=== PATIENT | male | born 1955 | race Caucasian/White ===

== ENCOUNTER 2018-10-02 15:02 | Inpatient (IN) | payer MEDICARE ==
[~2018-10-02] VITALS: Ht 165.1 cm; Wt 81.7 kg
[~2018-10-02 15:02] MED LIST: ACET325 PO; ALBU90OI6 INH; ALPR.5 PO; AZIT250 PO; Chantix0.5 MG PO; Citalopram HBr20 MG PO; GABA300 PO; HYDACE5 PO; IBUP600 PO; Inderal40 MG PO; LEVITRA PO; Neurontin800 MG PO; Norco 10-325 T1 EACH PO; OMEP20ER PO; OMEPRAZOLE MAGN20 MG PO; Percocet 5-3251 EACH PO; Pravastatin Sod40 MG PO; QUALAQUIN PO; TAMS.4ER PO; TEMA30 PO; TRAZ50 PO; VARE1 PO; ZINCODVICR TOP; ZOLP10 PO
[2018-10-02 15:32] LABS: BASOPHILS ABSOLUTE AUTO 0.05 K/mm3 (0.00-0.23); BASOPHILS PERCENT AUTO 0 % (0-2); EOSINOPHILS ABSOLUTE AUTO 0.02 K/mm3 (0.00-0.68); EOSINOPHILS PERCENT AUTO 0 % (0-6); Hematocrit 45.8 % (37.0-53.0); Hemoglobin 14.9 g/dL (13.5-17.5); IMMATURE GRAN ABSOLUTE AUTO 0.29 K/mm3 (0.00-0.10); IMMATURE GRAN PERCENT AUTO 1 % (0-1); LYMPHOCYTES ABSOLUTE AUTO 1.57 K/mm3 (0.84-5.20); LYMPHOCYTES PERCENT AUTO 7 % (21-46); MONOCYTES ABSOLUTE AUTO 1.42 K/mm3 (0.16-1.47); MONOCYTES PERCENT AUTO 6 % (4-13); Mean Corpuscular HGB 31.2 pg (26.0-34.0); Mean Corpuscular HGB Conc 32.5 g/dL (31.5-36.5); Mean Corpuscular Volume 96 fL (80-100); Mean Platelet Volume 9.4 fL (9.1-12.4); NEUTROPHILS ABSOLUTE AUTO 20.78 K/mm3 (1.96-9.15); NEUTROPHILS PERCENT AUTO 86 % (41-73); Platelet Count 199 K/mm3 (150-400); RDW Coefficient Variation 13.2 % (11.7-14.2); Red Blood Cell Count 4.78 M/mm3 (4.30-5.90); White Blood Cell Count 24.13 K/mm3 (4.00-11.30)
[2018-10-02 16:11] LABS: Alanine Aminotransfer (ALT/SGP 45 U/L (12-78); Albumin, Blood 3.2 g/dL (3.4-5.0); Albumin/Globulin Ratio 0.7 (0.8-1.8); Alk Phos 114 U/L (50-136); Anion Gap 7 mmol/L (6-16); Aspartate Aminotrans (AST/SGOT 41 U/L (12-37); Bilirubin, Total 0.7 mg/dL (0.1-1.0); Blood Urea Nitrogen 16 mg/dL (8-24); Bun/Creatinine Ratio 19.6 (12.0-20.0); CO2, Blood 26 mmol/L (21-32); Calcium, Blood 8.6 mg/dL (8.5-10.1); Chloride, Blood 104 mmol/L (98-108); Creatinine, Blood 0.82 mg/dL (0.60-1.20); Globulin, Blood 4.7 g/dL (2.2-4.0); Glomerular Filtration Rate >60 (60-); Glucose, Blood 125 mg/dL (70-99); Potassium, Blood 4.3 mmol/L (3.5-5.5); Sodium, Blood 137 mmol/L (136-145); Total Protein, Blood 7.9 g/dL (6.4-8.2); Troponin I <0.015 ng/mL (0.000-0.040)
[2018-10-02 20:21] LABS: Influenza A Negative (NEGATIVE); Influenza B Negative (NEGATIVE)
[2018-10-02] MEDS ORDERED: Norco 10-325 T1 EACH PO (21:25)
[2018-10-02] MEDS ORDERED: VIT1CAPS12 PO (21:26)
[2018-10-02] MEDS ORDERED: Multivitamin1 EAC1 PO (21:26)
--- NOTE | 2018-10-03 04:53 | NUR ---
SHIFT SUMMARY RECEIVED REPORT FROM ED RN. DIAGNOSIS OF SEPSIS R/T PNEUMONIA. LEUKOCYTOSIS NOTED. INFLUENZA NEGATIVE. LACTIC ACID WNL. WBC ELEVATED HOWEVER. WAS NOTED TO ED PHYSICIAN THAT HAD A FALL X2 DAYS AGO, BUT DENIED FALLING ONTO THE RIBS OR HITTING HIS HEAD. ARRIVED TO MEDICAL UNIT VIA STRETCHER @ 2134; ABLE TO SELF TRANSFER WITHOUT COMPLICATIONS. A/O X4, ABLE TO MAKE NEEDS KNOWN. COOPERATIVE WITH CARE. ANSWERS QUESTIONS APPROPRIATELY. C/O PAIN TO R SIDE OF CHEST/FLANK, RATED 8/10; MEDICATED PER EMAR. VSS/AFEBRILE THIS AM. APPEARED TO REST AFTER ARRIVAL. NO ACUTE CHANGES OVERNIGHT. WCTM. REPORT TO ONCOMING RN.
[2018-10-03 05:35] LABS: BASOPHILS ABSOLUTE AUTO 0.03 K/mm3 (0.00-0.23); BASOPHILS PERCENT AUTO 0 % (0-2); EOSINOPHILS PERCENT AUTO 0 % (0-6); Hematocrit 39.9 % (37.0-53.0); Hemoglobin 13.1 g/dL (13.5-17.5); IMMATURE GRAN ABSOLUTE AUTO 0.21 K/mm3 (0.00-0.10); IMMATURE GRAN PERCENT AUTO 1 % (0-1); LYMPHOCYTES ABSOLUTE AUTO 1.26 K/mm3 (0.84-5.20); LYMPHOCYTES PERCENT AUTO 7 % (21-46); MONOCYTES ABSOLUTE AUTO 0.18 K/mm3 (0.16-1.47); MONOCYTES PERCENT AUTO 1 % (4-13); Mean Corpuscular HGB 31.4 pg (26.0-34.0); Mean Corpuscular HGB Conc 32.8 g/dL (31.5-36.5); Mean Corpuscular Volume 96 fL (80-100); NEUTROPHILS ABSOLUTE AUTO 16.13 K/mm3 (1.96-9.15); NEUTROPHILS PERCENT AUTO 91 % (41-73); Platelet Count 175 K/mm3 (150-400); RDW Coefficient Variation 13.2 % (11.7-14.2); RDW Standard Deviation 47.4 fL (35.1-46.3); Red Blood Cell Count 4.17 M/mm3 (4.30-5.90); White Blood Cell Count 17.81 K/mm3 (4.00-11.30)
--- NOTE | 2018-10-03 09:17 | NUR ---
I recieved a permission to the patient to assist in providing care for tomorrow at [phone].
--- NOTE | 2018-10-03 16:43 | NUR ---
Juno was pleasant and welcoming. He is non-scientologist and declined prayer. I spoke to him about advanced care planning and an AD. He took the information, but said that his knows what he wants and he did not see a need for this document. Juno believes he will recover and expressed no concerns. I will remain available.
--- NOTE | 2018-10-03 18:46 | NUR ---
SHIFT SUMMARY OX3 STANDBY ASSIST X1 DUE TO DYSPNEA ON EXERTION. FALL AT HOME. PLEASANT, CALM. MEDS GIVEN FOR RIGHT SIDED RIB PAIN THAT INCREASES WITH COUGHING, DEEP BREATHING. EATING AND DRINKING WELL. BATHROOM PRIVILEGES/URINAL.
--- NOTE | 2018-10-04 07:31 | NUR ---
a+o walking rounds completed, care provided, room air, saline locked, call light in reach, hoping to go home today
[2018-10-04] MEDS ORDERED: ACET325 PO (12:05)
[2018-10-04] MEDS ORDERED: ALBU90OI INH (12:06)
[2018-10-04] MEDS ORDERED: Amoxicillin875 MG PO (12:07)
--- NOTE | 2018-10-04 12:30 | NUR ---
DISCHARGE NOTE PT DISCHARGED VIA W/C POV WITH FAMIY. IV DISCONTINUED INTACT. RX FAXED TO PHARMACY OF PT'S CHOOSING. PT VERBALIZED UNDERSTNDING OF WRITTEN AND VERBAL DISCHARGE INSTRUCTIONS. CAROL Castillo PROVIDED EDUCATION REINFORCEMENT OF USING RESPIRATORY BREATHING DEVICE PRIOR TO DC.
== END 2018-10-04 12:04 | disposition home or self-care (01) | DRG 871 ==
LOC: ER 15:02 → MEDS 21:27
PROVIDERS: Emergency Medicine; Physician Assistant; ADMIT Hospitalist
DX: A41.9 Sepsis, unspecified organism (principal); J18.9 Pneumonia, unspecified organism; G90.50 Complex regional pain syndrome I, unspecified; F32.9 Major depressive disorder, single episode, unspecified; E78.5 Hyperlipidemia, unspecified; G62.9 Polyneuropathy, unspecified; K76.0 Fatty (change of) liver, not elsewhere classified; K21.9 Gastro-esophageal reflux disease without esophagitis; Z87.891 Personal history of nicotine dependence
CPT/HCPCS: 36415; 71046; 80053; 83605; 83880; 84484; 85025; 87040; 87804; 93005; 93010; 94010; 94640; 94664; 94667; 94760; 96361; 96374; 96375; 99285-25; 99407; J0696; J1170; J1650; J2930; J7030; J7120

== ENCOUNTER 2019-05-20 23:55 | Inpatient (IN) | payer MEDICARE ==
[~2019-05-20] VITALS: Ht 162.6 cm; Wt 91.7 kg
[~2019-05-20 23:55] MED LIST changes: +ALBU90OI INH; +Amoxicillin875 MG PO; +Multivitamin1 EAC1 PO; +VIT1CAPS12 PO
[2019-05-21 00:37] LABS: BASOPHILS ABSOLUTE AUTO 0.02 K/mm3 (0.00-0.23); BASOPHILS PERCENT AUTO 0 % (0-2); EOSINOPHILS ABSOLUTE AUTO 0.27 K/mm3 (0.00-0.68); EOSINOPHILS PERCENT AUTO 2 % (0-6); Hematocrit 43.7 % (37.0-53.0); Hemoglobin 14.1 g/dL (13.5-17.5); IMMATURE GRAN ABSOLUTE AUTO 0.04 K/mm3 (0.00-0.10); IMMATURE GRAN PERCENT AUTO 0 % (0-1); LYMPHOCYTES ABSOLUTE AUTO 1.54 K/mm3 (0.84-5.20); LYMPHOCYTES PERCENT AUTO 13 % (21-46); MONOCYTES ABSOLUTE AUTO 0.45 K/mm3 (0.16-1.47); MONOCYTES PERCENT AUTO 4 % (4-13); Mean Corpuscular HGB 30.2 pg (26.0-34.0); Mean Corpuscular HGB Conc 32.3 g/dL (31.5-36.5); Mean Corpuscular Volume 94 fL (80-100); Mean Platelet Volume 9.6 fL (9.1-12.4); NEUTROPHILS ABSOLUTE AUTO 9.89 K/mm3 (1.96-9.15); NEUTROPHILS PERCENT AUTO 81 % (41-73); Platelet Count 208 K/mm3 (150-400); RDW Coefficient Variation 13.2 % (11.7-14.2); RDW Standard Deviation 45.6 fL (35.1-46.3); Red Blood Cell Count 4.67 M/mm3 (4.30-5.90); White Blood Cell Count 12.21 K/mm3 (4.00-11.30)
[2019-05-21 00:45] LABS: Base Excess Venous 4.7 mmol/L; Bicarbonate Venous 28.2 mmol/L (24.0-30.0); PCO2 Venous 41.8 mmHg (38-42); PO2 Venous 126 mmHg (38-42); pH Blood Venous 7.45 (7.34-7.37)
[2019-05-21 00:59] LABS: Alanine Aminotransfer (ALT/SGP 24 U/L (12-78); Albumin, Blood 3.5 g/dL (3.4-5.0); Albumin/Globulin Ratio 0.9 (0.8-1.8); Alk Phos 90 U/L (50-136); Anion Gap 5 mmol/L (6-16); Aspartate Aminotrans (AST/SGOT 21 U/L (12-37); Bilirubin, Total 0.3 mg/dL (0.1-1.0); Blood Urea Nitrogen 18 mg/dL (8-24); Bun/Creatinine Ratio 22.4 (12.0-20.0); CO2, Blood 28 mmol/L (21-32); Calcium, Blood 8.3 mg/dL (8.5-10.1); Chloride, Blood 107 mmol/L (98-108); Globulin, Blood 4.1 g/dL (2.2-4.0); Glomerular Filtration Rate >60 (60-); Glucose, Blood 106 mg/dL (70-99); Potassium, Blood 3.9 mmol/L (3.5-5.5); Sodium, Blood 140 mmol/L (136-145); Total Protein, Blood 7.6 g/dL (6.4-8.2); Troponin I <0.015 ng/mL (0.000-0.040)
[2019-05-21 04:47] LABS: Adenovirus Not Detected (NOT DETECT); Bordetella pertussis Not Detected (NOT DETECT); Chlamydophila pneumoniae Not Detected (NOT DETECT); Coronavirus 229E Not Detected (NOT DETECT); Coronavirus HKU1 Not Detected (NOT DETECT); Coronavirus NL63 Not Detected (NOT DETECT); Coronavirus OC43 Not Detected (NOT DETECT); Human Metapneumovirus Not Detected (NOT DETECT); Human Rhinovirus/Enterovirus Detected (NOT DETECT); Influenza A Not Detected (NOT DETECT); Influenza A/2009-H1 Not Detected (NOT DETECT); Influenza A/H1 Not Detected (NOT DETECT); Influenza A/H3 Not Detected (NOT DETECT); Influenza B Not Detected (NOT DETECT); Mycoplasma pneumoniae Not Detected (NOT DETECT); Parainfluenza Virus 1 Not Detected (NOT DETECT); Parainfluenza Virus 2 Not Detected (NOT DETECT); Parainfluenza Virus 3 Not Detected (NOT DETECT); Parainfluenza Virus 4 Not Detected (NOT DETECT); Respiratory Syncytial Virus Not Detected (NOT DETECT)
--- NOTE | 2019-05-21 05:15 | NUR ---
ADMIT NOTE/SHIFT SUMMARY PATIENT PLEASENT AND COOPERATIVE UPON ADMIT. PATIENT ABLE TO TRANSFER SELF FROM THE GURNEY TO THE BED WITH SBA. PATIENT REPORTS HIS BREATHING IS MUCH BETTER THAN WHEN HE CAME INTO THE ER. PATIENT DENIES ANY NAUSEA AT THIS TIME. PATIENT SETTLED IN AND ORIENTED TO THE ROOM, UNIT, AND CALL LIGHT. PATIENT ON 5L O2 UPON ADMIT. PATIENT REPORTS HE USES OXYGEN AT HOME DURING THE NIGHT BUT HE DOES NOT REMEMBER HOW MUCH. PATIENT HAS APPEARED TO SLEEP WELL THROUGHOUT THE REST OF THE NIGHT. WILL CONTINUE TO MONITOR PATIENT AND REPORT TO ONCOMING RN.
[2019-05-21 08:08] LABS: Hematocrit 43.8 % (37.0-53.0); Mean Corpuscular HGB 30.2 pg (26.0-34.0); Mean Corpuscular Volume 95 fL (80-100); Mean Platelet Volume 9.4 fL (9.1-12.4); Platelet Count 193 K/mm3 (150-400); RDW Coefficient Variation 13.4 % (11.7-14.2); RDW Standard Deviation 46.5 fL (35.1-46.3); Red Blood Cell Count 4.63 M/mm3 (4.30-5.90); White Blood Cell Count 23.25 K/mm3 (4.00-11.30)
[2019-05-21 08:32] LABS: Alanine Aminotransfer (ALT/SGP 29 U/L (12-78); Albumin, Blood 3.3 g/dL (3.4-5.0); Albumin/Globulin Ratio 0.8 (0.8-1.8); Alk Phos 72 U/L (50-136); Anion Gap 4 mmol/L (6-16); Aspartate Aminotrans (AST/SGOT 25 U/L (12-37); Bilirubin, Total 0.7 mg/dL (0.1-1.0); Blood Urea Nitrogen 20 mg/dL (8-24); Bun/Creatinine Ratio 21.5 (12.0-20.0); CO2, Blood 30 mmol/L (21-32); Calcium, Blood 8.4 mg/dL (8.5-10.1); Chloride, Blood 106 mmol/L (98-108); Creatinine, Blood 0.93 mg/dL (0.60-1.20); Glomerular Filtration Rate >60 (60-); Glucose, Blood 143 mg/dL (70-99); Sodium, Blood 140 mmol/L (136-145); Total Protein, Blood 7.3 g/dL (6.4-8.2)
--- NOTE | 2019-05-21 12:31 | NUR ---
NOTE PT VISITING WITH FAMILY. DID NOT BRING PT MEDICATION BOTTLES FROM HOME. SHE IS GOING TO CALL THEIR PHARMACY AND REQUEST RECORDS BE FAXED TO PCU. PT WEANED TO RA. SAT 94%. VOICE QUALITY MILDLY STRAINED WITH TALKING. DR SAUNDERS CALLED TO REQUEST A BD PROTOCOL. ORDER RECEIVED. PT REQUESTED PRN BREATHING TREATMENT X1. PT EXPRESSED DECREASE IN WORK OF BREATHING AFTER TREATMENT. H/L. PT APPETITE POOR. HE DOESN'T LIKE THE FOOD. CONTINUE POT.
[2019-05-21] MEDS ORDERED: Flovent 110 MCG12 GM INH (16:20)
[2019-05-21] MEDS ORDERED: Inderal40 MG (16:21)
--- NOTE | 2019-05-21 20:57 | NUR ---
CARE ASSUMPTION PT A&O X4. VSS. MONITOR SHOWS NSR, HR 80'S. SPO2 > 92% ON RA. PT REPORTS USING O2 AT HOME AT NIGHT. PT DENIES KNOWING HOME O2 L/MIN USAGE. AGREED W/ PT TO START ON 2L NC WHILE SLEEPING. PT NOTED TO BE SWEATY T/O AND BILAT HANDS TREMULOUS. PT DENIES ALCOHOL USAGE. PT C/O PAIN IN LOWER BACK AND BILAT LOWER LEGS FROM KNEES DOWN. MEDICATING PT PER PT REQUEST/EMAR. WILL CONTINUE TO MONITOR AND PROVIDE CARE.
--- NOTE | 2019-05-22 04:42 | NUR ---
SHIFT SUMMARY PT CONTINUES TO BE A&O X4. VSS. SPO2 > 92% ON RA OR 2L NC WHILE SLEEPING. MONITOR SHOWS NSR, HR 70-90. PT CONTINUES TO BE TREMULOUS BUT IS NO LONGER SWEATING. WILL CONTINUE TO MONITOR AND PROVIDE CARE UNTIL REPORT OFF TO DAY SHIFT RN.
--- NOTE | 2019-05-22 17:51 | NUR ---
SHIFT SUMMARY PT A&Ox4, CALM AND COOPERATIVE WITH CARE. TREMORS NOTED, PT STATES TREMORS PRESENT AT HOME, "BUT NOT BAD". PT REPORTS PAIN IN LOWER BACK AND BLE, MEDICATED x1 WITH NORCO PER ORDERS WITH POSITIVE RESULTS. PT SOB WITH EXERTION, TITRATED TO RA THIS AM, SPO2 >94% ON RA. PT DENIES NAUSEA T/O SHIFT. PT TRANSITIONED TO PO STEROIDS THIS AM. SPUTUM SPECIMEN COLLECTED AND SENT. VSS. NO OTHER ACUTE CHANGES NOTED DURING SHIFT. WILL CONTINUE TO MONITOR UNITL REPORT GIVEN TO ONCOMING RN.
[2019-05-23 04:16] LABS: Hematocrit 39.7 % (37.0-53.0); Mean Corpuscular HGB 29.9 pg (26.0-34.0); Mean Corpuscular HGB Conc 32.7 g/dL (31.5-36.5); Platelet Count 213 K/mm3 (150-400); RDW Coefficient Variation 13.9 % (11.7-14.2); RDW Standard Deviation 46.3 fL (35.1-46.3); Red Blood Cell Count 4.35 M/mm3 (4.30-5.90); White Blood Cell Count 22.92 K/mm3 (4.00-11.30)
[2019-05-23 04:17] LABS: Mean Corpuscular Volume 91 fL (80-100)
[2019-05-23 04:32] LABS: Anion Gap 6 mmol/L (6-16); Blood Urea Nitrogen 32 mg/dL (8-24); Bun/Creatinine Ratio 35.6 (12.0-20.0); CO2, Blood 30 mmol/L (21-32); Calcium, Blood 8.6 mg/dL (8.5-10.1); Chloride, Blood 106 mmol/L (98-108); Glomerular Filtration Rate >60 (60-); Glucose, Blood 132 mg/dL (70-99); Potassium, Blood 3.5 mmol/L (3.5-5.5); Sodium, Blood 142 mmol/L (136-145)
--- NOTE | 2019-05-23 05:40 | NUR ---
PATIENT COMPLAINED THAT HE DIDN'T GET MUCH SLEEP DUE TO NIGHTMARES. PATIENT DENIES ANY PAIN. PATIENT SLEPT WITH 2L NC ON. PATIENT CALL LIGHT WITH IN REACH. PATIENT INDEPENDENT IN ROOM.
--- NOTE | 2019-05-23 18:16 | NUR ---
SHIFT SUMMARY PT A&Ox4, CALM AND COOPERATIVE WITH CARE. PT RESTING IN BED DURING SHIFT. UP TO BATHROOM IND. PT UP WALKING IN KRUGER T/O SHIFT. PT REPORTS PAIN IN BACK AND BLE, MEDICATED x2 WITH NORCE AND x1 WITH TYLENOL WITH POSITIVE RESULTS. PT SOB WITH EXERTION, SPO2>94% ON RA T/O SHIFT. PT DENIES NAUSEA, GOOD APPETITE. PT RECEIVED PO STEROIDS AND TRANSITIONING TO PO ANTIBIOTICS THIS EVENING. VSS. NO OTHER ACUTE CHANGES NOTED DURING SHIFT. WILL CONTINUE TO MONITOR UNTIL REPORT GIVEN TO ONCOMING RN.
[2019-05-24 03:37] LABS: Hematocrit 41.4 % (37.0-53.0); Hemoglobin 13.3 g/dL (13.5-17.5); Mean Corpuscular HGB 29.7 pg (26.0-34.0); Mean Corpuscular HGB Conc 32.1 g/dL (31.5-36.5); Mean Corpuscular Volume 92 fL (80-100); Platelet Count 229 K/mm3 (150-400); RDW Coefficient Variation 13.7 % (11.7-14.2); RDW Standard Deviation 46.8 fL (35.1-46.3); Red Blood Cell Count 4.48 M/mm3 (4.30-5.90); White Blood Cell Count 18.77 K/mm3 (4.00-11.30)
--- NOTE | 2019-05-24 06:03 | NUR ---
SHIFT SUMMARY PATIENT VERY PLEASENT AND COOPERATIVE THROUGHOUT THE NIGHT. PATIENT WENT ON A WALK BEFORE BED. APPEARED TO SLEEP WELL LAST NIGHT. VITAL SIGNS CHARTED. PATIENT CURRENTLY APPEARS TO BE ASLEEP. WILL CONTINUE TO MONITOR PATIENT AND REPORT TO ONCOMING RN.
--- NOTE | 2019-05-24 09:59 | NUR ---
Assumed care of patient at 0715. 0720-Assessment completed, lung sounds are decreased R lobes, clear on left, reports non-productive cough. C/O back pain (chronic) and feet pain from neuropathy...rates 01/05...see MAR for intevention and response. No other problems to report. Hoping to go home today.
--- NOTE | 2019-05-24 12:18 | NUR ---
DISCHARGE SUMMARY: Dr. Eric in and is in the process of writing discharge orders to home. Patient is up in the hallway on RA ambulating, ready to go home, tolerating well with no dyspnea noted. No further c/o pain since Tylenol given this am.
[2019-05-24] MEDS ORDERED: ALBU2.5V5 INH (14:48)
[2019-05-24] MEDS ORDERED: Flovent 110 MCG12 GM INH (14:50)
[2019-05-24] MEDS ORDERED: LEVO750 PO (14:52)
[2019-05-24] MEDS ORDERED: DELTASONE20 MG PO (14:56)
[2019-05-24] MEDS ORDERED: LONHALA MA25 MCG/1 M INH (14:58)
== END 2019-05-24 15:39 | disposition home or self-care (01) | DRG 871 ==
LOC: ER 23:55 → PCU 23:56
PROVIDERS: Emergency Medicine; Internal Medicine; ADMIT Internal Medicine
DX: A41.9 Sepsis, unspecified organism (principal); J96.21 Acute and chronic respiratory failure with hypoxia; J18.1 Lobar pneumonia, unspecified organism; J44.1 Chronic obstructive pulmonary disease with (acute) exacerbation; J44.0 Chronic obstructive pulmonary disease with (acute) lower respiratory infection; B97.89 Other viral agents as the cause of diseases classified elsewhere; K21.9 Gastro-esophageal reflux disease without esophagitis; E78.5 Hyperlipidemia, unspecified
CPT/HCPCS: 0099U; 36415; 71045; 80048; 80053; 82803; 83605; 83880; 84145; 84484; 85025; 85027; 87040; 87070; 87205; 93005; 93010; 94640; 94664; 94667; 94760; 96365; 96375; 98960; 99285; A9270; J0692; J1650; J1956; J2930; J7512

== ENCOUNTER → 2020-06-23 | Outpatient (CLI) | payer MEDICARE ==
[~2020-06-23] MED LIST changes: +ALBU2.5V5 INH; +DELTASONE20 MG PO; +Flovent 110 MCG12 GM INH; +Inderal40 MG; +LEVO750 PO; +LONHALA MA25 MCG/1 M INH
== END | disposition home or self-care (01) ==
LOC: LAB SHORT 15:40 → LAB EV 15:40
DX: G89.0 Central pain syndrome (principal); Z79.899 Other long term (current) drug therapy
CPT/HCPCS: G0480

== ENCOUNTER → 2020-06-26 | Outpatient (CLI) | payer MEDICARE | END | disposition home or self-care (01) | LOC: LAB SHORT 12:00 → LAB SRC 12:00 | DX: Z51.81 Encounter for therapeutic drug level monitoring (principal); Z79.899 Other long term (current) drug therapy | CPT/HCPCS: G0480 ==

== ENCOUNTER 2020-09-23 11:57 | Observation (INO) | payer MEDICARE ==
[~2020-09-23] VITALS: Ht 162.6 cm; Wt 95.2 kg
[~2020-09-23 11:57] MED LIST changes: -Inderal40 MG PO; -Pravastatin Sod40 MG PO
[2020-09-23 13:11] LABS: BASOPHILS ABSOLUTE AUTO 0.04 K/mm3 (0.00-0.23); BASOPHILS PERCENT AUTO 1 % (0-2); EOSINOPHILS ABSOLUTE AUTO 0.39 K/mm3 (0.00-0.68); EOSINOPHILS PERCENT AUTO 5 % (0-6); Hematocrit 48.1 % (37.0-53.0); Hemoglobin 14.8 g/dL (13.5-17.5); IMMATURE GRAN ABSOLUTE AUTO 0.06 K/mm3 (0.00-0.10); IMMATURE GRAN PERCENT AUTO 1 % (0-1); LYMPHOCYTES ABSOLUTE AUTO 2.53 K/mm3 (0.84-5.20); LYMPHOCYTES PERCENT AUTO 30 % (21-46); MONOCYTES ABSOLUTE AUTO 0.76 K/mm3 (0.16-1.47); MONOCYTES PERCENT AUTO 9 % (4-13); Mean Corpuscular HGB Conc 30.8 g/dL (31.5-36.5); Mean Corpuscular Volume 91 fL (80-100); Mean Platelet Volume 9.5 fL (9.1-12.4); NEUTROPHILS ABSOLUTE AUTO 4.65 K/mm3 (1.96-9.15); NEUTROPHILS PERCENT AUTO 55 % (41-73); NRBC ABSOLUTE 0.03 K/mm3 (0.00-0.02); NRBC Auto 0.4 /100 WBC (0.0-0.2); Platelet Count 227 K/mm3 (150-400); RDW Coefficient Variation 14.4 % (11.7-14.2); RDW Standard Deviation 47.8 fL (35.1-46.3); Red Blood Cell Count 5.29 M/mm3 (4.30-5.90); White Blood Cell Count 8.43 K/mm3 (4.00-11.30)
[2020-09-23 13:21] LABS: Alanine Aminotransfer (ALT/SGP 25 U/L (12-78); Albumin, Blood 3.2 g/dL (3.4-5.0); Albumin/Globulin Ratio 0.7 (0.8-1.8); Alk Phos 92 U/L (50-136); Anion Gap 5 mmol/L (6-16); Aspartate Aminotrans (AST/SGOT 18 U/L (12-37); Bilirubin, Total 0.3 mg/dL (0.1-1.0); Blood Urea Nitrogen 15 mg/dL (8-24); Bun/Creatinine Ratio 15.3 (12.0-20.0); CO2, Blood 31 mmol/L (21-32); Chloride, Blood 104 mmol/L (98-108); Creatinine, Blood 0.98 mg/dL (0.60-1.20); Globulin, Blood 4.3 g/dL (2.2-4.0); Glomerular Filtration Rate >60 (60-); Glucose, Blood 81 mg/dL (70-99); Potassium, Blood 4.1 mmol/L (3.5-5.5); Sodium, Blood 140 mmol/L (136-145); Total Protein, Blood 7.5 g/dL (6.4-8.2); Troponin I <0.015 ng/mL (0.000-0.040)
[2020-09-23 14:16] LABS: Influenza A, PCR Negative (NEGATIVE); Influenza B, PCR Negative (NEGATIVE); Resp Syncytial Virus, PCR Negative (NEGATIVE); SARS-Cov-2 (COVID-19) PCR, MMC Negative (NEGATIVE)
[2020-09-23] MEDS ORDERED: CYMBALTA30 M1 PO (14:26)
[2020-09-23] MEDS ORDERED: DEPO-TESTO200 MG/1 M IM (14:29)
[2020-09-23] MEDS ORDERED: Doxepin HC10 MG/1 ML PO (14:30)
[2020-09-23] MEDS ORDERED: Inderal40 MG PO (14:31)
--- NOTE | 2020-09-23 21:32 | NUR ---
transfer report from Mirian SIEGEL RN on 65 year old Male with COPD emphysema with increased SOB x 4 days & elevated ddimer positive CT pul angiogram & mult seg pulm embolius. Await admission.
--- NOTE | 2020-09-24 04:02 | NUR ---
65 year old MAle admitted via ER with multiple PE's. He has COPD exsmoker quit 4 years ago who has been seen at primary care provider recently for increasing SOB. His room air sats are greater than 90% but baseline wears oxygen at HS.o2 2 l nc applied. He is on Tele monitor with full code status. Pleasant & cooperative. Able to communicate but has garbled speech due to tounge thrust a baseline problems. Chronic pain had 1 norco 10/325 mg tab at HS as per baseline. PT has weekly testosterone injections. Started on xaralto anticoagulant to treat pulmonary emboli.
[2020-09-24 04:58] LABS: BASOPHILS ABSOLUTE AUTO 0.02 K/mm3 (0.00-0.23); BASOPHILS PERCENT AUTO 0 % (0-2); EOSINOPHILS PERCENT AUTO 0 % (0-6); Hematocrit 49.2 % (37.0-53.0); Hemoglobin 15.3 g/dL (13.5-17.5); IMMATURE GRAN ABSOLUTE AUTO 0.07 K/mm3 (0.00-0.10); IMMATURE GRAN PERCENT AUTO 1 % (0-1); LYMPHOCYTES ABSOLUTE AUTO 1.74 K/mm3 (0.84-5.20); LYMPHOCYTES PERCENT AUTO 15 % (21-46); MONOCYTES ABSOLUTE AUTO 0.33 K/mm3 (0.16-1.47); MONOCYTES PERCENT AUTO 3 % (4-13); Mean Corpuscular HGB 28.2 pg (26.0-34.0); Mean Corpuscular HGB Conc 31.1 g/dL (31.5-36.5); Mean Corpuscular Volume 91 fL (80-100); Mean Platelet Volume 9.4 fL (9.1-12.4); NEUTROPHILS ABSOLUTE AUTO 9.45 K/mm3 (1.96-9.15); NEUTROPHILS PERCENT AUTO 81 % (41-73); Platelet Count 257 K/mm3 (150-400); RDW Coefficient Variation 14.3 % (11.7-14.2); RDW Standard Deviation 47.5 fL (35.1-46.3); Red Blood Cell Count 5.43 M/mm3 (4.30-5.90); White Blood Cell Count 11.61 K/mm3 (4.00-11.30)
[2020-09-24 05:28] LABS: Anion Gap 9 mmol/L (6-16); Blood Urea Nitrogen 17 mg/dL (8-24); Bun/Creatinine Ratio 18.4 (12.0-20.0); CO2, Blood 28 mmol/L (21-32); Calcium, Blood 9.1 mg/dL (8.5-10.1); Chloride, Blood 101 mmol/L (98-108); Creatinine, Blood 0.92 mg/dL (0.60-1.20); Glomerular Filtration Rate >60 (60-); Glucose, Blood 142 mg/dL (70-99); Potassium, Blood 3.7 mmol/L (3.5-5.5); Sodium, Blood 138 mmol/L (136-145)
--- NOTE | 2020-09-24 14:03 | NUR ---
DISCHARGE: eschorted pt to family car where was waiting very frusterated at not being able to come in until 1400, discussed ways have solved issue, pt left happy and promised to take medication and try to follow all dc orders; REVIEWED stay, dc orders, medications, follow up appointments and any questions pt had, a+o able to walk but allowed staff to transport him via wc
--- NOTE | 2020-09-24 21:19 | NUR ---
SUMMARY: Admit 09/23/20 09/24/20 Discharge home with . Gave him xaralto coupon for free month. Suggested if he cannot afford follow up refills to contact his pcp and request samples. Discussed care coordination, not homebound or in need of home health. no DME needed. Interested in COPD Education from [facility] and pharmacy services for his nebulizer to help cover the cost of the medication. Will request order from Dr Mancera for education. Expecting [facility] call next 48 hours to follow up on his condition and schedule follow up visit.
[2020-12-16] MEDS ORDERED: AMIT50 PO (21:28)
[2020-12-16] MEDS ORDERED: ROFL500T PO (21:28)
[2020-12-16] MEDS ORDERED: DEPO-TESTO200 MG/1 M IM (21:29)
[2020-12-16] MEDS ORDERED: Pravastatin Sod40 MG PO (21:30)
[2020-12-16] MEDS ORDERED: XARELTO20 MG PO (21:30)
[2020-12-16] MEDS ORDERED: OMEP20ER PO (21:31)
[2020-12-16] MEDS ORDERED: Norco 10-325 T1 EACH PO (21:31)
[2020-12-16] MEDS ORDERED: FLUTICASONE-SA1 EAC2 INH (21:32)
[2020-12-16] MEDS ORDERED: SPIRIVA RESPIMAT4 G3 INH (21:33)
[2020-12-16] MEDS ORDERED: ALBU90OI INH (21:56)
[2020-12-19] MEDS ORDERED: AZIT250 PO (12:44)
[2020-12-19] MEDS ORDERED: TAMS.4ER PO (12:44)
[2020-12-19] MEDS ORDERED: AMOCLA875 PO (12:45)
[2020-12-19] MEDS ORDERED: Prednisone10 MG PO (12:46)
[2020-12-19] MEDS ORDERED: OXYGEN (12:47)
== END 2020-09-24 13:54 | disposition home or self-care (01) ==
LOC: ER 11:57 → MEDS 11:58
PROVIDERS: Emergency Medicine; ADMIT Internal Medicine
DX: I26.99 Other pulmonary embolism without acute cor pulmonale (principal); J43.9 Emphysema, unspecified; I10 Essential (primary) hypertension; I25.10 Atherosclerotic heart disease of native coronary artery without angina pectoris; G89.4 Chronic pain syndrome; F51.04 Psychophysiologic insomnia; E78.5 Hyperlipidemia, unspecified; I82.409 Acute embolism and thrombosis of unspecified deep veins of unspecified lower extremity; Z87.891 Personal history of nicotine dependence; Z79.01 Long term (current) use of anticoagulants
CPT/HCPCS: 0241U; 36415; 71045; 71260; 80048; 80053; 83880; 84484; 85025; 85379; 93005; 93010; 94640; 94760; 96365; 96366; 96375; 99285-25; A9270; G0378; J2930; J3475; Q9967

== ENCOUNTER → 2020-11-03 | Outpatient (CLI) | payer MEDICARE ==
[~2020-11-03] MED LIST changes: +AMIT50 PO; +AMOCLA875 PO; +ATOR80 PO; +CLOP75 PO; +COLCRYS0.6 MG PO; +COMBIVENT RESPIM4 G1 INH; +CYMBALTA30 M1 PO; +DEPO-TESTO200 MG/1 M IM; +DEPO-TESTO200 MG/13 IM; +Doxepin HC10 MG/1 ML PO; +FAMO20 PO; +FLUTICASONE-SA1 EA12 INH; +FLUTICASONE-SA1 EAC2 INH; +HYDROCODONE-AC1 EAC7 PO; +Inderal40 MG PO; +METO100ER PO; +OXYGEN; +PRAVASTATIN SOD40 MG PO; +Pravastatin Sod40 MG PO; +Prednisone10 MG PO; +ROFL500T PO; +SPIRIVA RESPIMAT4 G3 INH; +TAMSULOSIN HCL0.4 M1 PO; +XARELTO20 MG PO
== END ==
LOC: LAB 14:06 → LAB SHORT 14:06
PROVIDERS: Family Medicine
DX: Z51.81 Encounter for therapeutic drug level monitoring (principal); Z79.899 Other long term (current) drug therapy
CPT/HCPCS: G0480

== ENCOUNTER 2021-01-28 11:59 | Inpatient (IN) | payer MEDICARE ==
[~2021-01-28] VITALS: Ht 165.1 cm; Wt 93.6 kg
[~2021-01-28 11:59] MED LIST changes: -ATOR80 PO; -CLOP75 PO; -COLCRYS0.6 MG PO; -COMBIVENT RESPIM4 G1 INH; -DEPO-TESTO200 MG/13 IM; -FAMO20 PO; -FLUTICASONE-SA1 EA12 INH; -HYDROCODONE-AC1 EAC7 PO; -METO100ER PO; -PRAVASTATIN SOD40 MG PO; -TAMSULOSIN HCL0.4 M1 PO
[2021-01-28] MEDS ORDERED: COMBIVENT RESPIM4 G1 INH (12:11)
[2021-01-28] MEDS ORDERED: DEPO-TESTO200 MG/13 IM (12:11)
[2021-01-28] MEDS ORDERED: PRAVASTATIN SOD40 MG PO (12:11)
[2021-01-28] MEDS ORDERED: HYDROCODONE-AC1 EAC7 PO (12:12)
[2021-01-28] MEDS ORDERED: TAMSULOSIN HCL0.4 M1 PO (12:13)
[2021-01-28] MEDS ORDERED: FLUTICASONE-SA1 EA12 INH (12:14)
[2021-01-28 12:33] LABS: Hematocrit 43.9 % (37.0-53.0); Hemoglobin 14.3 g/dL (13.5-17.5); Mean Corpuscular HGB 28.6 pg (26.0-34.0); Mean Corpuscular HGB Conc 32.6 g/dL (31.5-36.5); Mean Corpuscular Volume 88 fL (80-100); Mean Platelet Volume 9.8 fL (9.1-12.4); Platelet Count 241 K/mm3 (150-400); RDW Coefficient Variation 13.1 % (11.7-14.2); White Blood Cell Count 15.21 K/mm3 (4.00-11.30)
[2021-01-28 13:05] LABS: Alanine Aminotransfer (ALT/SGP 60 U/L (12-78); Albumin, Blood 3.4 g/dL (3.4-5.0); Albumin/Globulin Ratio 0.8 (0.8-1.8); Alk Phos 93 U/L (50-136); Anion Gap 7 mmol/L (6-16); Aspartate Aminotrans (AST/SGOT 232 U/L (12-37); Bilirubin, Total 0.7 mg/dL (0.1-1.0); Blood Urea Nitrogen 16 mg/dL (8-24); Bun/Creatinine Ratio 12.4 (12.0-20.0); CHOL/HDL RATIO 2.6; CO2, Blood 24 mmol/L (21-32); Calcium, Blood 8.8 mg/dL (8.5-10.1); Chloride, Blood 104 mmol/L (98-108); Cholesterol 174 mg/dL (50-200); Creatinine, Blood 1.29 mg/dL (0.60-1.20); Glomerular Filtration Rate 59 (60-); Glucose, Blood 102 mg/dL (70-99); HDL Cholesterol 66 mg/dL (>39); LDL/HDL RATIO 1.4; Low Density Lipoprotein Chol 91 mg/dL (0-110); Magnesium, Blood 1.6 mg/dL (1.6-2.4); Potassium, Blood 4.1 mmol/L (3.5-5.5); Sodium, Blood 135 mmol/L (136-145); Total Protein, Blood 7.4 g/dL (6.4-8.2); Triglycerides 83 mg/dL (30-160); Very Low Density Lipoprot Chol 16 mg/dL (6-32)
--- NOTE | 2021-01-28 15:04 | NUR ---
PT TO ICU 14 FROM [facility]. PT ARRIVES ALERT AND ORIENTED ON 3L NC, PT DENIES CHEST PAIN AND SOB AT THIS TIME. PT RECEIEVING 250 ML/HR NS TO INCREASE SBP>100 WITH ORDERS TO TITRATE DOWN TOLERATED. TR BAND TO RIGHT WRIST. 11 CC AIR. SITE SOFT, NONTENDER, DISTAL PULES/PALLOR WNL. PT AT BEDSIDE, PT DENIES NEEDS AT THIS TIME. SEE FULL ADMISSION ASSESSMENT.
[2021-01-28 16:05] LABS: CHOL/HDL RATIO 2.8; Cholesterol 179 mg/dL (50-200); HDL Cholesterol 63 mg/dL (>39); LDL/HDL RATIO 1.6; Low Density Lipoprotein Chol 98 mg/dL (0-110); Triglycerides 88 mg/dL (30-160); Very Low Density Lipoprot Chol 17 mg/dL (6-32)
--- NOTE | 2021-01-28 17:19 | NUR ---
NO ACUTE CHANGES SINCE ADMISSION. PT REMAINS ALERT AND ORIENTED, CONTINUES TO DENIES CHEST PAIN, 1 EPISODE OF SHORTNESS OF BREATH WHILE STANDING AT BEDSIDE USING URINAL THAT WAS QUICKLY RESOLVED. TR BAND REMOVED AT 1600, CLEAR DRESSING AND ARMBOARD IN PLACE. RIGHT RADIAL ACCESS SITE REMAINS SOFT/NONTENDER, NO OOZING/BLEEDING, DISTAL PULSES/PALLOR WNL. SATS REMAIN IN UPPER 90'S ON ROOM AIR. HR TACHY WITH ST ELEVATION, UNCHANGED SINCE ADMISSION TO ICU.
--- NOTE | 2021-01-28 17:27 | NUR ---
Pt and spouse requested more information about advanced care planning. was not present at time of visit. Pt asked me to leave advanced directive packet at bedside for . Advised I would remain available to assist completion.
--- NOTE | 2021-01-28 20:00 | NUR ---
ASSUMPTION OF CARE REPORT RECEIVED FROM MORENO SIMPSON. PT SLEEPING, AROUSABLE TO VERBAL STIMULI. VSS, HR 117 SINUS TACH ON MONITOR, BP 138'S, SPO2 96% ON RA. PT DENIES CHEST PAIN AT THIS TIME. CHRONIC NUMBNESS/TINGLING TO BILATERAL FEET, HOME MED NORCO RESTARTED. PT ALERT AND ORIENTED, MUMBLES OCASSIONALLY. DENIES ANY NEEDS AT THIS TIME. WILL CONTINUE TO MONITOR.
[2021-01-29 04:27] LABS: BASOPHILS ABSOLUTE AUTO 0.03 K/mm3 (0.00-0.23); BASOPHILS PERCENT AUTO 0 % (0-2); EOSINOPHILS ABSOLUTE AUTO 0.06 K/mm3 (0.00-0.68); EOSINOPHILS PERCENT AUTO 0 % (0-6); Hematocrit 42.9 % (37.0-53.0); Hemoglobin 13.7 g/dL (13.5-17.5); IMMATURE GRAN ABSOLUTE AUTO 0.08 K/mm3 (0.00-0.10); IMMATURE GRAN PERCENT AUTO 1 % (0-1); LYMPHOCYTES ABSOLUTE AUTO 2.65 K/mm3 (0.84-5.20); LYMPHOCYTES PERCENT AUTO 19 % (21-46); MONOCYTES ABSOLUTE AUTO 1.32 K/mm3 (0.16-1.47); MONOCYTES PERCENT AUTO 9 % (4-13); Mean Corpuscular HGB 28.6 pg (26.0-34.0); Mean Corpuscular HGB Conc 31.9 g/dL (31.5-36.5); Mean Corpuscular Volume 90 fL (80-100); Mean Platelet Volume 9.4 fL (9.1-12.4); NEUTROPHILS ABSOLUTE AUTO 10.11 K/mm3 (1.96-9.15); NEUTROPHILS PERCENT AUTO 71 % (41-73); Platelet Count 204 K/mm3 (150-400); RDW Coefficient Variation 13.1 % (11.7-14.2); RDW Standard Deviation 43.3 fL (35.1-46.3); Red Blood Cell Count 4.79 M/mm3 (4.30-5.90); White Blood Cell Count 14.25 K/mm3 (4.00-11.30)
[2021-01-29 04:44] LABS: Anion Gap 6 mmol/L (6-16); Blood Urea Nitrogen 16 mg/dL (8-24); CO2, Blood 27 mmol/L (21-32); Calcium, Blood 8.8 mg/dL (8.5-10.1); Chloride, Blood 103 mmol/L (98-108); Creatinine, Blood 1.14 mg/dL (0.60-1.20); Glomerular Filtration Rate >60 (60-); Glucose, Blood 85 mg/dL (70-99); Potassium, Blood 4.1 mmol/L (3.5-5.5); Sodium, Blood 136 mmol/L (136-145)
--- NOTE | 2021-01-29 05:12 | NUR ---
SHIFT ASSESSMENT PT ALERT AND ORIENTED T/O SHIFT. HR REMAINED ELEVATED 115-120'S. BP STABLE 115-120'S. SPO2 >92%, 2L NC APPLIED WHILE ASLEEP TO MAINTAIN >92% OTHERWISE ON RA. PT DENIES PAIN, STATED HE HAD SOME INCREASED CHEST PAIN ONCE YESTERDAY WHILE STANDING AT BEDSIDE USING URINAL BUT HAS NOT HAPPENED AGAIN. EKG DONE THIS SHIFT PER ORDERS.
--- NOTE | 2021-01-29 07:36 | NUR ---
ASSUMED CARE OF PT, REPORT RCV'D FROM CALVIN DAMIAN. PT ALERT AND ORIENTED SITTING AT SIDE OF BED. PT REPORTS THAT HE IS HAVING "MINOR CHEST PAIN" WHEN "BREATHING IN DEEP OR STANDING". PT DESCRIBES THIS PAIN "PUSHING IN THE MIDDLE" SUBSTERNALLY. PT TACHYCARDIC WITH HR 120'S AT REST, 140'S WITH AMBULATION. RIGHT RADIAL ACCESS SITE SOFT/NONTENDER, NO EVIDENCE OF BLEEDING, DISTAL PULSES/PALLOR WNL. ARMBOARD IN PLACE, PT COMPLIANT WITH MINIMIZING RIGHT WRIST MOVEMENT. SEE FULL SHIFT ASSESSMENT.
--- NOTE | 2021-01-29 16:05 | NUR ---
Initial Pal Care visit at request of to assist with completion of Advanced Directives and discuss AD forms. In depth coverage of both AD and POLST forms done with pt and . given blank form for herself at her request also. Discussed aftercare for pt who has had an VT this week and did not demonstrate need for stent with angiogram per PN. Pt understands that medications taken as directed can improve his s/s and quality of life going forward. We briefly discussed cardiac rehab and that if traffic observer or PCP felt this was appropriate they may discuss at f/u office visits. Pt has a PMH of HTN, hyperlipidemia, PE recently with 3 mo tx with xarelto, COPD, GERD, BPH, etoh use/abuse and chronic pain. His AIC was 6.1. He would benefit from the education on diet, safe exercise, stress management, advanced care planning, s/s management & intervention, medications, etc that cardiac rehab has to offer. Pt demonstrates poor knowledge regarding his chronic illnesses. expressed interest in learning more. I offered a f/u visit tomorrow but she will be at work and pt's brother will be visiting and available to transport pt home if he is d/c'd, which pt anticipates. Pt reports lingering midline chest discomfort with deep breathing and SOBOE. He appears sl sob with conversation. Pt confirms that his current orders for FULL CODE are in line with his wishes at this time. I gave pt/ booklet "Hard Choices for [place] people" to review and generate questions/conversation between themselves and their providers and for a general overview of advanced care planning. Contact information provided so that we can help pt and complete the AD or POLST once they have reviewed and decided upon what they would like for each of them. I explained and listed who they should provide copies to, who could witness, the availabiltiy of a notary if no appropriate witnesses avail and that we would process and get scanned to Juno's EMR once conpleted. Pt and appreciative of the visit and information. Pt's traffic observer made a visit during my visit. I left and returned to finish the conversation.
--- NOTE | 2021-01-29 16:48 | NUR ---
Spiritual care note: Mr. Arceo speaks rather quickly and is sometimes difficult to understand. He tells me he feels better today and was very complimentary of nursing. He admits to needed life changes to maintain health. Awaiting 's arrival. Advised I would be available to assist with Advanced Directive.
--- NOTE | 2021-01-29 18:25 | NUR ---
SHIFT SUMMARY NO ACUTE CHANGES OVERNIGHT. PT REMAINS ALERT AND ORIENTED. PT ABLE TO INDEPENDENTLY STAND AT SIDE OF BED TO USE URINAL. PT DENIES CHEST PAIN AT REST, REPORTS "CHEST PRESSURE" AND "SHORTNESS OF BREATH" WITH EXERTION. PT SATS>90% T/O SHIFT ON ROOM AIR. PT HAD GOOD APPETITE WITH 800 ML URINARY OUTPUT. HR 97-100 FOLLOWING SECOND DOSE OF METOPROLOL. PT MADE MEDICAL WITH TELE STATUS WITH PLAN FOR POSSIBLE DISCHARGE TOMORROW. WILL REPORT TO ONCOMING NURSE.
--- NOTE | 2021-01-30 04:29 | NUR ---
SHIFT SUMMARY PATIENT HAS SLEPT WELL THROUGH NIGHT. NO C/O PAIN. RADIAL SITE WELL MAINTAINED, NO BLEEDING NOTED. ASSESSMENT IS CHARTED. VSS. WILL CONTINUE TO MONITOR.
[2021-01-30] MEDS ORDERED: ATOR80 PO (13:42)
[2021-01-30] MEDS ORDERED: CLOP75 PO (13:43)
[2021-01-30] MEDS ORDERED: COLCRYS0.6 MG PO (13:44)
[2021-01-30] MEDS ORDERED: METO100ER PO (13:45)
[2021-01-30] MEDS ORDERED: XARELTO20 MG PO (13:45)
[2021-01-30] MEDS ORDERED: FAMO20 PO (13:47)
--- NOTE | 2021-01-30 13:58 | NUR ---
PT ALERT AND ORIENTED X4. MUMBLES AND HARD TO UNDERSTAND AT BASELINE. ON ROOM AIR SATING 94-95%. DENIES SOB. TELE SHOWING SINUS WITH HR AVERAGING 100. DENIES CHEST PAIN/PRESSURE. VITAL SIGNS STABLE. PERIPHERAL PULSES STRONG. BOWEL TONES PRESENT. RIGHT RADIAL SIGHT C/D/I. NO SIGNS OF BLEEDING OR HEMATOMA. EDUCATION PROVIDED ON POST ANGIO CARE. PLAN TO DISCHARGE TODAY. NO CONCERNS AT THIS TIME. WILL CONTINUE TO MONITOR.
[2021-01-30 14:11] LABS: HEPARIN INDUCED PLATELET AB 0.107 OD (0.000-0.400)
--- NOTE | 2021-01-30 14:20 | NUR ---
DISCHARGE: PT LEFT UNIT VIA WHEELCHAIR. VITAL SIGNS STABLE. DISCHARGE INSTRUCTIONS REVIEWED AND QUESTIONS ANSWERED. EDUCATION ON RIGHT RADIAL SIGHT. PT LEFT WITH BELONGINGS. IV'S TAKEN OUT PER PROTOCOL.
--- NOTE | 2021-01-30 17:05 | NUR ---
Update 01/30/21 1655: Per chart review this am with Dr. Cruz, pt. appropriate for discharge home. Reviewed discharge planning with pt. PLOF: IndependentLiving arrangements: Single story dwelling with spouse. Denied concerns with utilities. Denied barriers to mobility. Transportation: Brother at [address], but will not be driving today. Denied DME needs.Pharmacy: [facility]. Brother will take him to cook pickled meat medications. No barriers to discharge. Pt. given direct triage line and main [place] number to call with any questions or concerns. He was advised that [facility] is available 21/03. Hospital F/U scheduled 02/03/21 at 10am. Date and time written on discharge letter for pt.
[2021-02-09 09:10] LABS: APTT 27.4 sec (.); DRVVT CONFIRM SECONDS 34.6 sec (.); DRVVT RATIO 1.6 ratio (.); DRVVT SCREEN SECONDS 60.9 sec (.); FACTOR VIII ACTIVITY 305 % (.); HEXAGONAL PHOSPHOLIPID NEUTRAL 0 sec (.); HOMOCYSTEINE 9.4 umol/L (.); PRT C ACTIVITY (CHROMOGENIC) 92 % (.)
== END 2021-01-30 13:30 | disposition home or self-care (01) | DRG 282 ==
LOC: ER 11:59 → ICUW 12:09
PROVIDERS: Emergency Medicine; ADMIT Internal Medicine Cardiovascular Disease
PROC: 4A023N7 Measurement of Cardiac Sampling and Pressure, Left Heart, Percutaneous Approach (ICD-10-PCS; principal; 2021-01-28)
PROC: B2111ZZ Fluoroscopy of Multiple Coronary Arteries using Low Osmolar Contrast (ICD-10-PCS; 2021-01-28)
PROC: B2151ZZ Fluoroscopy of Left Heart using Low Osmolar Contrast (ICD-10-PCS; 2021-01-28)
DX: I21.3 ST elevation (STEMI) myocardial infarction of unspecified site (principal); J44.9 Chronic obstructive pulmonary disease, unspecified; K21.9 Gastro-esophageal reflux disease without esophagitis; E78.5 Hyperlipidemia, unspecified; Z86.711 Personal history of pulmonary embolism; I10 Essential (primary) hypertension; Z98.52 Vasectomy status; R73.03 Prediabetes; G89.4 Chronic pain syndrome
CPT/HCPCS: 36415; 71275; 76937; 80048; 80053; 80061; 81240; 83036; 83090; 83520; 83735; 84443; 84484; 85025; 85027; 85240; 85300; 85303; 85306; 85307; 85347; 85613; 85730; 85732; 86022; 86146; 86147; 86850; 86900; 86901; 93005; 93010; 93306; 93458; 94640; 96374; 96375; 99152; 99153; 99285-25; A9270; C1769; C1887; C1894; J1071; J1644; J2250; J3010; J3475; J7030; J7050; Q9967

== ENCOUNTER → 2021-01-28 | Outpatient (CLI) | payer MEDICARE | END | disposition home or self-care (01) | LOC: LAB EV 12:03 → LAB SHORT 12:03 | DX: R07.9 Chest pain, unspecified (principal) | CPT/HCPCS: 84484 ==

== ENCOUNTER → 2021-03-04 | Outpatient (CLI) | payer MEDICARE ==
[~2021-03-04] MED LIST changes: +ATOR80 PO; +CLOP75 PO; +COLCRYS0.6 MG PO; +COMBIVENT RESPIM4 G1 INH; +DEPO-TESTO200 MG/13 IM; +FAMO20 PO; +FLUTICASONE-SA1 EA12 INH; +HYDROCODONE-AC1 EAC7 PO; +METO100ER PO; +PRAVASTATIN SOD40 MG PO; +TAMSULOSIN HCL0.4 M1 PO
== END | disposition home or self-care (01) ==
LOC: LAB SHORT 12:22
PROVIDERS: Family Medicine
DX: M54.9 Dorsalgia, unspecified (principal); G89.29 Other chronic pain; Z79.899 Other long term (current) drug therapy
CPT/HCPCS: G0480

== ENCOUNTER → 2022-06-25 | Outpatient (CLI) | payer MEDICARE ==
[~2022-06-25] MED LIST changes: +Cyclobenzaprine5 MG PO; +NEURONTIN300 MG PO
== END ==
LOC: LAB SHORT 13:29 → LAB 13:29
PROVIDERS: Family Medicine
DX: Z79.899 Other long term (current) drug therapy (principal)
CPT/HCPCS: G0480

== ENCOUNTER 2022-07-27 01:22 | Emergency (ER) | payer MEDICARE | END 2022-07-27 06:18 | disposition home or self-care (01) | DX: B34.9 Viral infection, unspecified (principal); J44.9 Chronic obstructive pulmonary disease, unspecified; I25.2 Old myocardial infarction; Z88.5 Allergy status to narcotic agent; Z88.8 Allergy status to other drugs, medicaments and biological substances; Z79.899 Other long term (current) drug therapy; Z20.822 Contact with and (suspected) exposure to COVID-19 ==

== ENCOUNTER 2022-09-16 08:28 | Inpatient (IN) | payer MEDICARE ==
[~2022-09-16] VITALS: Ht 165.1 cm; Wt 113.4 kg
[2022-09-16 09:08] LABS: BASOPHILS ABSOLUTE AUTO 0.05 K/mm3 (0.00-0.23); BASOPHILS PERCENT AUTO 0 % (0-2); EOSINOPHILS ABSOLUTE AUTO 0.47 K/mm3 (0.00-0.68); EOSINOPHILS PERCENT AUTO 2 % (0-6); Hematocrit 40.3 % (37.0-53.0); Hemoglobin 12.6 g/dL (13.5-17.5); IMMATURE GRAN ABSOLUTE AUTO 0.13 K/mm3 (0.00-0.10); IMMATURE GRAN PERCENT AUTO 1 % (0-1); LYMPHOCYTES PERCENT AUTO 3 % (21-46); MONOCYTES ABSOLUTE AUTO 0.64 K/mm3 (0.16-1.47); MONOCYTES PERCENT AUTO 3 % (4-13); Mean Corpuscular HGB 28.6 pg (26.0-34.0); Mean Corpuscular HGB Conc 31.3 g/dL (31.5-36.5); Mean Corpuscular Volume 91 fL (80-100); Mean Platelet Volume 9.4 fL (9.1-12.4); NEUTROPHILS ABSOLUTE AUTO 19.27 K/mm3 (1.96-9.15); NEUTROPHILS PERCENT AUTO 91 % (41-73); Platelet Count 240 K/mm3 (150-400); RDW Coefficient Variation 14.5 % (11.7-14.2); RDW Standard Deviation 48.7 fL (35.1-46.3); Red Blood Cell Count 4.41 M/mm3 (4.30-5.90); White Blood Cell Count 21.16 K/mm3 (4.00-11.30)
[2022-09-16 09:22] LABS: Albumin, Blood 2.7 g/dL (3.4-5.0); Albumin/Globulin Ratio 0.7 (0.8-1.8); Bun/Creatinine Ratio 20.2 (12.0-20.0); Calcium, Blood 8.2 mg/dL (8.5-10.1); Creatinine, Blood 1.19 mg/dL (0.60-1.20); Globulin, Blood 3.7 g/dL (2.2-4.0); Potassium, Blood 3.7 mmol/L (3.5-5.5); Total Protein, Blood 6.4 g/dL (6.4-8.2)
[2022-09-16] MEDS ORDERED: OMEP20ER PO (10:09)
--- NOTE | 2022-09-16 16:30 | NUR ---
pt arrived to 329 via gurney, pt able to stand and tx to bed indep, a/ox3, pleasant and cooperative with care, follows commands well, denies pain at this time, lungs are dim tight with some wheezing t/o, resp even and mildly labored wilda with any activity, no cough noted, pt reports a dry nonproductive cough, hrr, no edema noted, ppp+1, cap refill <3sec, vs stable, afebrile, piv site to lac site is clear and patent, btx4, abd round soft nontender, voids via urinal without diff, skin is c/w/d, pale, maew, gait steady, is a bit impulsive, found him with 02 off, replaced and reeducated about need at this time, oriented to room layout and call system, asked him to call when has any needs, call light in reach.
--- NOTE | 2022-09-16 17:58 | NUR ---
pt is impulsive, was oriented to room layout and call system, but did not call when he needed to void, and took o2 off and went to the bathroom, he was found in distress with o2 off sitting on the bed, placed o2 back on and turned up until sats came up to 95%, he is doing much better now, reeducated to not walk into the bathroom and not to take 02 off, and to call the nurse for help, he states once it hits I have to go now, bed alarm will be activated once he lays down, call light in reach.
[2022-09-16 22:39] LABS: Influenza A, PCR NEGATIVE (NEGATIVE); Influenza B, PCR NEGATIVE (NEGATIVE); Resp Syncytial Virus, PCR NEGATIVE (NEGATIVE); SARS-Cov-2 (COVID-19) PCR, MMC NEGATIVE (NEGATIVE)
--- NOTE | 2022-09-17 04:18 | NUR ---
SPIKE DRIVER SUMMARY PT A/OX3-4 AND FORGETFUL. PLEASANT AND COOPERATIVE. PT ON 4L O2NC. THIS IS BASELINE FOR HIM AT HOME. PT BECOMES VERY SHORT OF BREATH WITH MINIMAL ACTIVITY. NOTED SEVERAL TIME T/O THE SHIFT PT SITTING AT BEDSIDE IN TRIPOD POSITION. DURING AN EPISODE OF SOB VITALS SHOWED >90 SATURATION BUT HR IN THE 130'S. PT HAS BEEN RUNNING TACHY; NO TELE ORDERED. PT ABLE TO MAKE NEEDS KNOWN. NOT ALWAYS USING CALL LIGHT BUT WAITING FOR NURSE/AID TO ROUND TO MAKE REQUEST. PT HAS KEPT O2 ON CONTINUOUSLY DURING THIS SHIFT BUT HAS ASKED IF HE CAN REMOVE IT/TAKE BREAK; EDUCATED PT ON NEED FOR CONT 02 AT THIS TIME. CALL LIGHT ACCESSIBLE. BED LOCKED/LOW. WILL CONT TO MONITOR.
[2022-09-17 05:03] LABS: BASOPHILS ABSOLUTE AUTO 0.05 K/mm3 (0.00-0.23); BASOPHILS PERCENT AUTO 0 % (0-2); EOSINOPHILS ABSOLUTE AUTO 0.44 K/mm3 (0.00-0.68); EOSINOPHILS PERCENT AUTO 3 % (0-6); Hematocrit 35.9 % (37.0-53.0); Hemoglobin 11.5 g/dL (13.5-17.5); IMMATURE GRAN ABSOLUTE AUTO 0.11 K/mm3 (0.00-0.10); IMMATURE GRAN PERCENT AUTO 1 % (0-1); LYMPHOCYTES ABSOLUTE AUTO 1.32 K/mm3 (0.84-5.20); LYMPHOCYTES PERCENT AUTO 8 % (21-46); MONOCYTES ABSOLUTE AUTO 0.92 K/mm3 (0.16-1.47); MONOCYTES PERCENT AUTO 5 % (4-13); Mean Corpuscular HGB 29.3 pg (26.0-34.0); Mean Corpuscular Volume 91 fL (80-100); Mean Platelet Volume 9.5 fL (9.1-12.4); NEUTROPHILS ABSOLUTE AUTO 14.33 K/mm3 (1.96-9.15); NEUTROPHILS PERCENT AUTO 83 % (41-73); Platelet Count 199 K/mm3 (150-400); RDW Coefficient Variation 14.8 % (11.7-14.2); RDW Standard Deviation 50.2 fL (35.1-46.3); Red Blood Cell Count 3.93 M/mm3 (4.30-5.90); White Blood Cell Count 17.17 K/mm3 (4.00-11.30)
[2022-09-17 05:26] LABS: Albumin, Blood 2.2 g/dL (3.4-5.0); Albumin/Globulin Ratio 0.6 (0.8-1.8); Bilirubin, Total 0.7 mg/dL (0.1-1.0); Bun/Creatinine Ratio 13.7 (12.0-20.0); Calcium, Blood 8.3 mg/dL (8.5-10.1); Creatinine, Blood 1.02 mg/dL (0.60-1.20); Globulin, Blood 3.7 g/dL (2.2-4.0); Potassium, Blood 4.2 mmol/L (3.5-5.5); Total Protein, Blood 5.9 g/dL (6.4-8.2)
--- NOTE | 2022-09-17 11:19 | NUR ---
CONSULT CALLED BY THIS RN TO DR CHILDS. SPOKE WITH HIM ON THE PHONE.
--- NOTE | 2022-09-17 16:35 | NUR ---
SHIFT SUMMARY PATIENT ALERT AND ORIENTED. SBA TO BATHROOM, USES URINAL AT BEDSIDE. LOW GRADE TEMP TREATED WITH IV ABX AND NORCO. HR TACHY ON TELE 120S, PATIENT STATES HE FEELS BETTER THAN LASTNIGHT BUT STILL OCCASIONALLY HAS CHILLS. SUPP O2 AT 4L VIA NC. NEBS PER RT. PULMONARY CONSULT FROM DR CHILDS. SPEECH EVAL ORDERED FOR TOMORROW AM 09/18/22. MODIFIED BARIUM SWALLOW LIKELY WILL BE DONE TUESDAY PER SPEECH THERAPIST. 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 FAMILY MEMBERS PRESENT IN ROOM DURING AFTERNOON. TOLERATING CARDIAC DIET AND LIQUIDS. WBC ELEV BUT TRENDING DOWN.
--- NOTE | 2022-09-18 04:15 | NUR ---
SHIFT SUMMARY PATIENT HAD NO ACUTE CHANGES. AXO X4 AND ONE ASSIST TO BR. SOB W/EXERTION. ON 4L 02 NC BASELINE. USES URINAL AT BEDSIDE. PIV REMAINS INTACT. ON TELEMETRY ST 113. VSS/AFEBRILE. DENIES PAIN, SOB, AND N/V. RT IN FOR BREATHING TX. ABLE TO SLEEP MOST OF THE SHIFT. CALL LIGHT IN REACH. BED IN LOWEST POSITION. WILL CONTINUE TO MONITOR UNTIL DAY SHIFT NURSE ASSUMES CARE.
[2022-09-18 05:10] LABS: BASOPHILS ABSOLUTE AUTO 0.04 K/mm3 (0.00-0.23); BASOPHILS PERCENT AUTO 0 % (0-2); EOSINOPHILS ABSOLUTE AUTO 0.57 K/mm3 (0.00-0.68); EOSINOPHILS PERCENT AUTO 5 % (0-6); Hematocrit 35.5 % (37.0-53.0); Hemoglobin 11.1 g/dL (13.5-17.5); IMMATURE GRAN ABSOLUTE AUTO 0.07 K/mm3 (0.00-0.10); IMMATURE GRAN PERCENT AUTO 1 % (0-1); LYMPHOCYTES ABSOLUTE AUTO 1.47 K/mm3 (0.84-5.20); LYMPHOCYTES PERCENT AUTO 13 % (21-46); MONOCYTES ABSOLUTE AUTO 1.05 K/mm3 (0.16-1.47); MONOCYTES PERCENT AUTO 9 % (4-13); Mean Corpuscular HGB 28.5 pg (26.0-34.0); Mean Corpuscular HGB Conc 31.3 g/dL (31.5-36.5); Mean Corpuscular Volume 91 fL (80-100); Mean Platelet Volume 9.6 fL (9.1-12.4); NEUTROPHILS ABSOLUTE AUTO 8.57 K/mm3 (1.96-9.15); NEUTROPHILS PERCENT AUTO 73 % (41-73); Platelet Count 203 K/mm3 (150-400); RDW Coefficient Variation 14.9 % (11.7-14.2); RDW Standard Deviation 50.3 fL (35.1-46.3); Red Blood Cell Count 3.89 M/mm3 (4.30-5.90); White Blood Cell Count 11.77 K/mm3 (4.00-11.30)
[2022-09-18 05:43] LABS: Anion Gap 9 mmol/L (6-16); Blood Urea Nitrogen 14 mg/dL (8-24); Bun/Creatinine Ratio 12.8 (12.0-20.0); CO2, Blood 22 mmol/L (21-32); Calcium, Blood 8.5 mg/dL (8.5-10.1); Chloride, Blood 104 mmol/L (98-108); Creatinine, Blood 1.09 mg/dL (0.60-1.20); Glomerular Filtration Rate 74 (60-); Glucose, Blood 116 mg/dL (70-99); Phosphorus, Blood 2.3 mg/dL (2.5-4.9); Potassium, Blood 4.2 mmol/L (3.5-5.5); Sodium, Blood 135 mmol/L (136-145)
--- NOTE | 2022-09-18 17:30 | NUR ---
SHIFT SUMMARY PT AOX4 THIS SHIFT, CALLING WELL AND COOPERATING. HE HAS C/O PAIN ONCE AND WAS MEDICATED PER THE EMAR. FRIENDS VISITED HIM AT THE BS T/O THE SHIFT. HE HAS BEEN IN BED ALL DAY, RESTING OFF AND ON. SPEECH THERAPY ASSESSED AND PUT HIM ON ASPIRATION PRECAUTIONS, SEE THE ORDER IN THE CHART. WILL REPORT TO ONCOMING NURSE. HE IS CURRENTLY ON 5L O2.
--- NOTE | 2022-09-19 04:35 | NUR ---
SHIFT SUMMARY PATIENT AXOX 3 WITH CONFUSION AT TIMES AND ANXIOUS. PUSHES CALL LIGHT THINKING HE IS SELECTING CHANNELS ON REMOTE. DOES NOT USE CALL LIGHT WHEN REMINDED T/O SHIFT. GETS UP IMPULSIVELY TO USE URINAL W/O HELP AND HR INCREASES TO 140-150 PER DIRECTOR TOXICOLOGY. SOB W/EXERTION ON 5L AND NEEDING 7L-8L TO RECOVER. RT IN FOR BREATHING TX. DENIES PAIN AND N/V. SLEPT ON/OFF T/O SHIFT. CALL LIGHT IN REACH. BED IN LOWEST POSITION. WILL CONTINUE TO MONITOR UNTIL DAY SHIFT NURSE ASSUMES CARE.
[2022-09-19 06:16] LABS: Anion Gap 10 mmol/L (6-16); Blood Urea Nitrogen 10 mg/dL (8-24); CO2, Blood 21 mmol/L (21-32); Calcium, Blood 9.1 mg/dL (8.5-10.1); Chloride, Blood 104 mmol/L (98-108); Creatinine, Blood 1.11 mg/dL (0.60-1.20); Glomerular Filtration Rate 72 (60-); Glucose, Blood 85 mg/dL (70-99); Phosphorus, Blood 3.3 mg/dL (2.5-4.9); Potassium, Blood 4.2 mmol/L (3.5-5.5); Sodium, Blood 135 mmol/L (136-145)
--- NOTE | 2022-09-19 08:00 | NUR ---
pt laying in bed awake a/ox3, pleasant and cooperative with care, follows commands well, denies pain, just sob, lungs are tight, dim t/o, has a harsh productive cough, currently on 5 liters, dyspnic with any activity, hrr, tele in place running sr per monitor, see strip, 2-3+ edema noted to b/l ankles, iv site to lac is leaking this was removed intact, btx4, abd round soft nontender, voids without diff, skin c/w/d, meena mayo, pt is impulsive, and not cognisant of lines, call light in reach.
[2022-09-19 11:30] LABS: BASOPHILS ABSOLUTE AUTO 0.03 K/mm3 (0.00-0.23); BASOPHILS PERCENT AUTO 0 % (0-2); EOSINOPHILS ABSOLUTE AUTO 0.43 K/mm3 (0.00-0.68); EOSINOPHILS PERCENT AUTO 5 % (0-6); Hematocrit 33.6 % (37.0-53.0); IMMATURE GRAN ABSOLUTE AUTO 0.04 K/mm3 (0.00-0.10); IMMATURE GRAN PERCENT AUTO 0 % (0-1); LYMPHOCYTES PERCENT AUTO 18 % (21-46); MONOCYTES ABSOLUTE AUTO 0.92 K/mm3 (0.16-1.47); MONOCYTES PERCENT AUTO 10 % (4-13); Mean Corpuscular HGB 28.8 pg (26.0-34.0); Mean Corpuscular HGB Conc 32.7 g/dL (31.5-36.5); Mean Corpuscular Volume 88 fL (80-100); Mean Platelet Volume 9.1 fL (9.1-12.4); NEUTROPHILS ABSOLUTE AUTO 6.12 K/mm3 (1.96-9.15); NEUTROPHILS PERCENT AUTO 67 % (41-73); Platelet Count 218 K/mm3 (150-400); RDW Coefficient Variation 14.9 % (11.7-14.2); RDW Standard Deviation 47.8 fL (35.1-46.3); Red Blood Cell Count 3.82 M/mm3 (4.30-5.90); White Blood Cell Count 9.14 K/mm3 (4.00-11.30)
--- NOTE | 2022-09-19 18:00 | NUR ---
pt resting in bed, no acute changes this shift, encouraged him not to try to ambulate to the bathroom, call light in reach.
--- NOTE | 2022-09-20 04:11 | NUR ---
SHIFT SUMMARY PATIENT HAD NO ACUTE CHANGES OBSERVED. AXOX 3 AND ONE ASSIST TO BSC. USES URINAL AT BEDSIDE. SOB W/EXERTION. RT INCREASED O2 TO 6L FROM 5L NC. HR INCREASES TO 140-150 PER TELEMETRY WHEN PATIENT STANDS TO VOID. PIV REMAINS INTACT. IV ABX INFUSED. VSS/AFEBRILE. DENIES PAIN AND N/V. CALL LIGHT IN REACH. BED IN LOWEST POSITION. WILL CONTINUE TO MONITOR UNTIL DAY SHIFT NURSE ASSUMES CARE.
[2022-09-20 06:27] LABS: BASOPHILS ABSOLUTE AUTO 0.03 K/mm3 (0.00-0.23); BASOPHILS PERCENT AUTO 0 % (0-2); EOSINOPHILS ABSOLUTE AUTO 0.59 K/mm3 (0.00-0.68); EOSINOPHILS PERCENT AUTO 6 % (0-6); Hemoglobin 11.4 g/dL (13.5-17.5); IMMATURE GRAN ABSOLUTE AUTO 0.06 K/mm3 (0.00-0.10); IMMATURE GRAN PERCENT AUTO 1 % (0-1); LYMPHOCYTES ABSOLUTE AUTO 1.65 K/mm3 (0.84-5.20); LYMPHOCYTES PERCENT AUTO 16 % (21-46); MONOCYTES ABSOLUTE AUTO 1.04 K/mm3 (0.16-1.47); MONOCYTES PERCENT AUTO 10 % (4-13); Mean Corpuscular HGB 27.9 pg (26.0-34.0); Mean Corpuscular HGB Conc 31.7 g/dL (31.5-36.5); Mean Corpuscular Volume 88 fL (80-100); Mean Platelet Volume 9.5 fL (9.1-12.4); NEUTROPHILS ABSOLUTE AUTO 6.78 K/mm3 (1.96-9.15); NEUTROPHILS PERCENT AUTO 67 % (41-73); Platelet Count 226 K/mm3 (150-400); RDW Coefficient Variation 14.8 % (11.7-14.2); RDW Standard Deviation 47.7 fL (35.1-46.3); Red Blood Cell Count 4.08 M/mm3 (4.30-5.90); White Blood Cell Count 10.15 K/mm3 (4.00-11.30)
[2022-09-20 06:54] LABS: Albumin, Blood 2.1 g/dL (3.4-5.0); Anion Gap 8 mmol/L (6-16); Blood Urea Nitrogen 14 mg/dL (8-24); Bun/Creatinine Ratio 12.3 (12.0-20.0); CO2, Blood 27 mmol/L (21-32); Calcium, Blood 8.8 mg/dL (8.5-10.1); Chloride, Blood 102 mmol/L (98-108); Creatinine, Blood 1.14 mg/dL (0.60-1.20); Glomerular Filtration Rate 70 (60-); Glucose, Blood 90 mg/dL (70-99); Phosphorus, Blood 3.5 mg/dL (2.5-4.9); Potassium, Blood 4.5 mmol/L (3.5-5.5); Sodium, Blood 137 mmol/L (136-145)
--- NOTE | 2022-09-20 15:46 | NUR ---
SPOKE WITH PROVIDER ABOUT ELEVATED PULSE TREND, HE STATED TO CONTINUE MONITORING AND WATCHING THE PT.
--- NOTE | 2022-09-20 18:10 | NUR ---
SHIFT SUMMARY PT AOX4. CURRENTLY RECIEVING 3L PER NC AND SATING IN THE 'S. PT COMPLETED A SWALLOW STUDY THIS SHIFT ALONG WITH A CHEST X-RAY. CONTINUE TO TREAT PNEUMONIA. MULTIPLE FRIENDS AND FAMILY VISITED THIS SHIFT. PT HAD SOME PAIN AND WAS MEDICATED PER THE EMAR. WILL REPORT TO ONCOMING NURSE.
--- NOTE | 2022-09-21 05:30 | NUR ---
SUMMARY: PATIENT HR ELEVATED SUSTAINING IN 110S OVERNIGHT. ON 4L NC WHILE SLEEPING. MEDICATED FOR PAIN PER EMAR. PATIENT REPORTS HE FEELS CLAMMY AND OCCASIONAL CHILLS. TEMP CHECKED EVERY 4 HOURS OVERNIGHT WITH NO FEVER. IV ANTIBIOTICS GIVEN. PATIENT ABLE TO STAND AT EDGE OF BED TO VOID IN URINAL BUT BECOMES VERY SOB AND TACHYCARDIC. PATIENT RESTING IN BED COMFORTABLY CURRENTLY. CALL LIGHT IN REACH.
[2022-09-21 05:50] LABS: BASOPHILS ABSOLUTE AUTO 0.03 K/mm3 (0.00-0.23); BASOPHILS PERCENT AUTO 0 % (0-2); EOSINOPHILS ABSOLUTE AUTO 0.59 K/mm3 (0.00-0.68); EOSINOPHILS PERCENT AUTO 7 % (0-6); Hematocrit 33.9 % (37.0-53.0); Hemoglobin 11.1 g/dL (13.5-17.5); IMMATURE GRAN ABSOLUTE AUTO 0.06 K/mm3 (0.00-0.10); IMMATURE GRAN PERCENT AUTO 1 % (0-1); LYMPHOCYTES ABSOLUTE AUTO 1.55 K/mm3 (0.84-5.20); LYMPHOCYTES PERCENT AUTO 17 % (21-46); MONOCYTES ABSOLUTE AUTO 0.85 K/mm3 (0.16-1.47); MONOCYTES PERCENT AUTO 9 % (4-13); Mean Corpuscular HGB 28.5 pg (26.0-34.0); Mean Corpuscular HGB Conc 32.7 g/dL (31.5-36.5); Mean Corpuscular Volume 87 fL (80-100); Mean Platelet Volume 9.3 fL (9.1-12.4); NEUTROPHILS ABSOLUTE AUTO 6.03 K/mm3 (1.96-9.15); NEUTROPHILS PERCENT AUTO 66 % (41-73); Platelet Count 215 K/mm3 (150-400); RDW Coefficient Variation 14.8 % (11.7-14.2); RDW Standard Deviation 46.9 fL (35.1-46.3); Red Blood Cell Count 3.89 M/mm3 (4.30-5.90); White Blood Cell Count 9.11 K/mm3 (4.00-11.30)
[2022-09-21 06:05] LABS: Albumin, Blood 1.9 g/dL (3.4-5.0); Albumin/Globulin Ratio 0.4 (0.8-1.8); Bilirubin, Total 0.9 mg/dL (0.1-1.0); Bun/Creatinine Ratio 13.6 (12.0-20.0); Calcium, Blood 8.5 mg/dL (8.5-10.1); Creatinine, Blood 1.18 mg/dL (0.60-1.20); Globulin, Blood 4.6 g/dL (2.2-4.0); Potassium, Blood 3.6 mmol/L (3.5-5.5); Total Protein, Blood 6.5 g/dL (6.4-8.2)
--- NOTE | 2022-09-21 17:42 | NUR ---
PATIENT ALERT AND ORIENTATED. SOME BACK PAIN (LOWER BACK) WHICH HE BLAMES THE BED FOR. PRN NARCO IS AVAILABLE. SO FAR THIS SHIFT HE HAS TAKEN IT ONLY ONCE. IV PATENT AND ABX HAVE BEEN INFUSING INTERMITTENTLY THROUGH OUT THIS SHIFT. PATIENT HAS BEEN ALERT AND ORIENTED, VISITING WITH WITH COMPANY. HE HAS HAD NO CHEST PAIN, BUT IS SOB AND INCREASING SOB WITH ACTIVTY. TELE WAS TACH AT 110 IN THE AM. THIS AFTERNOON HIS TEMP WENT UP SLIGHTLY TO 100. EATING AND DRINKING WITHOUT PROBLEM OR CONCERN. SHUTTLE DRIVER SAW PATIENT THIS AM. HE STATED THE PNEUMONIA LOOKS SOMEWHAT IMPROVED. HE RECOMMENDS THAT THE PATIENT FOLLOW UP AFTER DISCHARGE AFTER A MONTH OR TWO, TO SEE HOW THE NODULES IN THE LUNGS APPEAR SO THEY CAN DIFFERENTIATE NODULE VS PNEUMONIA PROCESS.
--- NOTE | 2022-09-21 19:06 | NUR ---
MAGDALENA ASKED THIS CRACKING UNIT OPERATOR IF i HAD EMPTIED THE URINAL FOR THIS PATIENT TODAY. i HAD NOT. CLINICAL CARE LEADER STATES SHE HAS NOT EMPTIED THE URINAL EITHER. THE URINAL IS EMPTY AND PATEINT DENIES THAT HIS VISITORS HAVE EMPTIED. PATEINT REPORTS HE HASN'T URINATED THIS SHIFT WHEN ASKED. HE STATES HE FEELS LIKE HE NEEDS TO URINATE AT THIS TIME. WILL PASS ON TO NOC SHIFT THIS [facility] [place] [place] [facility].
--- NOTE | 2022-09-22 03:44 | NUR ---
LAMP STACK DEVELOPER SUMMARY TEMP SLIGHTLY ELEVATED NEAR HS, FLUIDS ENCOURAGED. TEMP 98.3 LATEST VS. NO C/O CHEST PAINS THIS SHIFT, LUNG SOUNDS DIMINISHED AND SOME WHEEZE/CONGESTED SOUNDS. IV ANTIBIOTICS ADMINISTERED ORDERED - SEE MAR FOR DETAILS. RESTING QUIETLY AT INTERVALS, SOME OCCASIONAL WATCHING TV. REST ENCOURAGED. SOME ASSISTANCE NEEDED WITH URINAL, ETC. EASILY SOB/HR INCREASED WITH PHYSICAL EXERTIONS. MED TELE REPORTED HR HIGH 143. CALL LIGHT IN REACH. HOB ELEVATED. WILL CONTINUE TO MONITOR.
[2022-09-22 05:42] LABS: BASOPHILS ABSOLUTE AUTO 0.02 K/mm3 (0.00-0.23); BASOPHILS PERCENT AUTO 0 % (0-2); EOSINOPHILS ABSOLUTE AUTO 0.47 K/mm3 (0.00-0.68); EOSINOPHILS PERCENT AUTO 5 % (0-6); Hematocrit 35.1 % (37.0-53.0); Hemoglobin 11.4 g/dL (13.5-17.5); IMMATURE GRAN ABSOLUTE AUTO 0.06 K/mm3 (0.00-0.10); IMMATURE GRAN PERCENT AUTO 1 % (0-1); LYMPHOCYTES ABSOLUTE AUTO 1.71 K/mm3 (0.84-5.20); LYMPHOCYTES PERCENT AUTO 18 % (21-46); MONOCYTES ABSOLUTE AUTO 0.81 K/mm3 (0.16-1.47); MONOCYTES PERCENT AUTO 8 % (4-13); Mean Corpuscular HGB 28.6 pg (26.0-34.0); Mean Corpuscular HGB Conc 32.5 g/dL (31.5-36.5); Mean Corpuscular Volume 88 fL (80-100); Mean Platelet Volume 9.8 fL (9.1-12.4); NEUTROPHILS ABSOLUTE AUTO 6.65 K/mm3 (1.96-9.15); NEUTROPHILS PERCENT AUTO 69 % (41-73); Platelet Count 228 K/mm3 (150-400); RDW Coefficient Variation 14.6 % (11.7-14.2); RDW Standard Deviation 47.4 fL (35.1-46.3); Red Blood Cell Count 3.99 M/mm3 (4.30-5.90); White Blood Cell Count 9.72 K/mm3 (4.00-11.30)
[2022-09-22 06:08] LABS: Albumin, Blood 2.1 g/dL (3.4-5.0); Albumin/Globulin Ratio 0.4 (0.8-1.8); Bilirubin, Total 0.8 mg/dL (0.1-1.0); Bun/Creatinine Ratio 14.3 (12.0-20.0); Calcium, Blood 8.5 mg/dL (8.5-10.1); Creatinine, Blood 1.19 mg/dL (0.60-1.20); Globulin, Blood 4.7 g/dL (2.2-4.0); Potassium, Blood 3.6 mmol/L (3.5-5.5); Total Protein, Blood 6.8 g/dL (6.4-8.2)
--- NOTE | 2022-09-22 20:06 | NUR ---
SHIFT SUMMARY PTN RESTING MUCH OF DAY, NOT EATING MUCH OF HIS MEALS. PLEASANT AND COOPERATIVE. BROTHER HERE THIS SHIFT. PTN HAS HAD GRADUAL INCREASE IN OYXGEN USE, UP TO 10L HIGH FLOW KEPT HIM >90. PTN ABLE TO SIT UP AND MOVE ABOUT, STANDBY ASSIST. RESPIRATORY THERAPY TO EVAL AND TREAT. SPUTUM SAMPLE SENT. COURSE BREATH SOUNDS AT THE BASES. FINDING OF PULMONARY NODULES ON CHEST CT, TO BE FOLLOWED AN OUTPATIENT. CONTINUE TO FOLLOW.
[2022-09-23 05:39] LABS: BASOPHILS ABSOLUTE AUTO 0.01 K/mm3 (0.00-0.23); BASOPHILS PERCENT AUTO 0 % (0-2); EOSINOPHILS ABSOLUTE AUTO 0.01 K/mm3 (0.00-0.68); EOSINOPHILS PERCENT AUTO 0 % (0-6); Hemoglobin 10.9 g/dL (13.5-17.5); IMMATURE GRAN ABSOLUTE AUTO 0.03 K/mm3 (0.00-0.10); IMMATURE GRAN PERCENT AUTO 1 % (0-1); LYMPHOCYTES ABSOLUTE AUTO 0.71 K/mm3 (0.84-5.20); LYMPHOCYTES PERCENT AUTO 11 % (21-46); MONOCYTES ABSOLUTE AUTO 0.06 K/mm3 (0.16-1.47); MONOCYTES PERCENT AUTO 1 % (4-13); Mean Corpuscular HGB 28.4 pg (26.0-34.0); Mean Corpuscular HGB Conc 32.1 g/dL (31.5-36.5); Mean Corpuscular Volume 89 fL (80-100); Mean Platelet Volume 9.4 fL (9.1-12.4); NEUTROPHILS ABSOLUTE AUTO 5.41 K/mm3 (1.96-9.15); NEUTROPHILS PERCENT AUTO 87 % (41-73); Platelet Count 240 K/mm3 (150-400); RDW Coefficient Variation 14.4 % (11.7-14.2); RDW Standard Deviation 46.5 fL (35.1-46.3); Red Blood Cell Count 3.84 M/mm3 (4.30-5.90); White Blood Cell Count 6.23 K/mm3 (4.00-11.30)
[2022-09-23 06:07] LABS: Albumin/Globulin Ratio 0.4 (0.8-1.8); Bilirubin, Total 0.7 mg/dL (0.1-1.0); Bun/Creatinine Ratio 17.6 (12.0-20.0); Calcium, Blood 8.9 mg/dL (8.5-10.1); Creatinine, Blood 0.96 mg/dL (0.60-1.20); Globulin, Blood 4.7 g/dL (2.2-4.0); Potassium, Blood 4.1 mmol/L (3.5-5.5); Total Protein, Blood 6.7 g/dL (6.4-8.2)
--- NOTE | 2022-09-23 06:26 | NUR ---
HEAD LINEMAN SUMMARY: A&Ox4. PLEASANT AND COOPERATIVE WITH CARE. CALLS APPROPRIATELY AND IS ABLE TO COMMUNICATE NEEDS EFFECTIVELY. VSS. WOULD BENEFIT FROM SHOWER BUT DECLINED, FINALLY AGREEING TO A BED BATH. PIV PLACED LFA; PATENT AND RUNNING ABx BEFORE BEING SALINE LOCKED. SHOULD CONSIDER POWERGLIDE IF PT IS GOING TO BE IN HOSPITAL MUCH LONGER D/T MULTIPLE, DIFFICULT STICKS. O2 10-11L/min VIA HI-FLOW NC. LABS DRAWN THIS AM; NO CRITICAL VALUES REPORTED. WILL REPORT TO ONCOMING RN.
--- NOTE | 2022-09-23 19:50 | NUR ---
SHIFT SUMMARY PTN WAS MORE ALERT TODAY AND NOT NAPPING MUCH. HE CONTINUES AT 11L HIGH FLOW. SATS DROP WITH MINIMAL EXERTION, AND PTN REMINDED TO BREATH IN THROUGH NC AND O2 SATS SLOWLY CREEP BACK UP TO 90'S. PTN REMAINS TACHY, BUT NO CALLS FROM TELEMETRY FOR ALERTS THIS SHIFT. CONTINUE TO MONITOR.
--- NOTE | 2022-09-24 04:43 | NUR ---
SHIFT NOTE PATIENT REMAINED ALERT AND ORIENTED, COOPERATIVE WITH CARE THROUGHOUT SHIFT. 11L NC HIGH FLOW, TOLERATING WELL BUT DESATS WITH ANY KIND OF ACTIVITY, EVEN CHANGING POSITION IN BED. RECOVERS WELL, BUT NEEDS REMINDERS TO BREATH THROUGH HIS NOSE. IV TKO WHEN NOT INFUSING, WNL. TELE NS AT 100 PER TECH. 1+ EDEMA TO BLE. NO OTHER ISSUES TO REPORT. WILL CONT TO MONITOR.
[2022-09-24 05:41] LABS: BASOPHILS ABSOLUTE AUTO 0.02 K/mm3 (0.00-0.23); BASOPHILS PERCENT AUTO 0 % (0-2); EOSINOPHILS PERCENT AUTO 0 % (0-6); IMMATURE GRAN ABSOLUTE AUTO 0.19 K/mm3 (0.00-0.10); IMMATURE GRAN PERCENT AUTO 1 % (0-1); LYMPHOCYTES ABSOLUTE AUTO 0.95 K/mm3 (0.84-5.20); LYMPHOCYTES PERCENT AUTO 7 % (21-46); MONOCYTES ABSOLUTE AUTO 0.37 K/mm3 (0.16-1.47); MONOCYTES PERCENT AUTO 3 % (4-13); Mean Corpuscular HGB 28.5 pg (26.0-34.0); Mean Corpuscular HGB Conc 32.4 g/dL (31.5-36.5); Mean Corpuscular Volume 88 fL (80-100); Mean Platelet Volume 9.9 fL (9.1-12.4); NEUTROPHILS ABSOLUTE AUTO 13.02 K/mm3 (1.96-9.15); NEUTROPHILS PERCENT AUTO 90 % (41-73); Platelet Count 302 K/mm3 (150-400); RDW Coefficient Variation 14.6 % (11.7-14.2); RDW Standard Deviation 46.7 fL (35.1-46.3); Red Blood Cell Count 3.86 M/mm3 (4.30-5.90); White Blood Cell Count 14.55 K/mm3 (4.00-11.30)
[2022-09-24 06:14] LABS: Albumin/Globulin Ratio 0.5 (0.8-1.8); Bilirubin, Total 0.5 mg/dL (0.1-1.0); Calcium, Blood 8.7 mg/dL (8.5-10.1); Creatinine, Blood 0.91 mg/dL (0.60-1.20); Globulin, Blood 4.4 g/dL (2.2-4.0); Potassium, Blood 3.8 mmol/L (3.5-5.5); Total Protein, Blood 6.4 g/dL (6.4-8.2)
--- NOTE | 2022-09-24 16:38 | NUR ---
SOLUMEDROL CONFIRMED WITH DR. HUSAIN TO GIVE 1600 DOSE OF 40MG SOLUMEDROL IV. UNABLE TO REMOVE FROM PYXIS SINCE MED HAS BEEN D/C. NEW ONE TIME ORDER DOSE PLACED.
--- NOTE | 2022-09-24 18:46 | NUR ---
SHIFT SUMMARY- PT IS ALERT AND ORIENTED X4 AND SITTING UP IN BED. 6L HF NC. PT DESATS WITH EXERTION AND TAKES A FEW MINUTES TO RECOVER. PT UP TO COMODE WITH NURSE ASSIST. PT USES BEDSIDE URINAL. PT IS COOPERATIVE AND OBEYS COMMANDS
[2022-09-25 04:48] LABS: BASOPHILS ABSOLUTE AUTO 0.02 K/mm3 (0.00-0.23); BASOPHILS PERCENT AUTO 0 % (0-2); EOSINOPHILS PERCENT AUTO 0 % (0-6); Hematocrit 34.2 % (37.0-53.0); Hemoglobin 11.1 g/dL (13.5-17.5); IMMATURE GRAN ABSOLUTE AUTO 0.14 K/mm3 (0.00-0.10); IMMATURE GRAN PERCENT AUTO 1 % (0-1); LYMPHOCYTES ABSOLUTE AUTO 1.34 K/mm3 (0.84-5.20); LYMPHOCYTES PERCENT AUTO 9 % (21-46); MONOCYTES PERCENT AUTO 6 % (4-13); Mean Corpuscular HGB 28.4 pg (26.0-34.0); Mean Corpuscular HGB Conc 32.5 g/dL (31.5-36.5); Mean Corpuscular Volume 88 fL (80-100); Mean Platelet Volume 9.6 fL (9.1-12.4); NEUTROPHILS ABSOLUTE AUTO 12.29 K/mm3 (1.96-9.15); NEUTROPHILS PERCENT AUTO 84 % (41-73); Platelet Count 335 K/mm3 (150-400); RDW Coefficient Variation 14.6 % (11.7-14.2); RDW Standard Deviation 46.5 fL (35.1-46.3); Red Blood Cell Count 3.91 M/mm3 (4.30-5.90); White Blood Cell Count 14.59 K/mm3 (4.00-11.30)
[2022-09-25 05:10] LABS: Albumin/Globulin Ratio 0.5 (0.8-1.8); Bilirubin, Total 0.5 mg/dL (0.1-1.0); Bun/Creatinine Ratio 24.8 (12.0-20.0); Calcium, Blood 8.4 mg/dL (8.5-10.1); Creatinine, Blood 0.93 mg/dL (0.60-1.20); Globulin, Blood 4.1 g/dL (2.2-4.0); Total Protein, Blood 6.1 g/dL (6.4-8.2)
--- NOTE | 2022-09-25 06:35 | NUR ---
SHIFT SUMMARY 67 YR M ADMITTED ON 09/16/22 FOR PNEUMONIA. FULL CODE. NO ACUTE CHANGES THIS SHIFT. PT 02 HAVE MAINTAINED IN THE NORMAL LEVEL THIS SHIFT. HE IS PLEASANT AND COOPERATIVE WITH CARE. NO C/O PAIN, DISCOMFORT, OR SOB THIS SHIFT.
--- NOTE | 2022-09-25 14:52 | NUR ---
pt resting at bedside. They were awaiting physician to come in. asked me to stay and explain my role. We had a very comprehensive conversation about full care, palliative care and hospice. We reviewed the last year of his life. He has been mostly seeing Dr bourne and missing his pulmonolgy appointments. He is much more debilitated and walking less and less. They are working with speech and he si distraught at his decline. He also has a few broken teeth in the front that may be infected. Pt reviewed ability to ventilate and move his chest muscles and air hunger. pt became a bit tearfull. Stated my back and chest hurt all the time that is how i feel. stated they spoke about hospice. He is very fearfull of hospice and the dying process. His mother suffed on oxygen for ten years with lung disease and suffered. Reviewed what hospice can offer for quality of life and keeping him out of the hospital and out of pain and reduce air hunger. Reviewed reducing suffering and if he get better with symptom control can speak with his doctor about tolerating more treatment.Advised his hospice sooner that later lessens his risk of dying painfully or in the hospital. He wants to at home with his family in at his home surrounded by his classic cars. Updated nursing on his symptoms, filled out a polst. Reviewed with physician strategic plan of treatment and home hopefully on tuesday with hospice intake. polst on chart dnr limited treatment. Review with pt on discharge will do new polst with dnr comfort measures. pt osborne not want cpr or ventilation. Will take reasonable treatment if he worsens in hopes ot making it home. Goal is to give him comprehensive autonomy and time for acceptance. Review of the eight domains. He owns a home no poa, basic will and no revocable trust gave them local resourses. Pt fears his having to deal with legal and financial stress after he passes. updated ocular care technologistoffice services manager referral placed. wants to speak with her friends to see who they reccomend. Gave them the review letter. They live in [place]. reviewed [facility]. will continue to montior symptoms and offer support.
--- NOTE | 2022-09-25 17:15 | NUR ---
SHIFT SUMMARY- PT IS ALERT AND ORIENTED X4. PT EXPERIENCED DYSPNEA AND DESATURATION TO LOW 80'S WHEN GOING TO THE BATHROOM. GALDINO FROM PALLIATIVE CARE DISCUSSED ADVANCED CARE PLANNING WITH PT. PT CODE STATUS CHANGE TO DNR. DNR BAND PLACED ON RIGHT WRIST AND VERIFIED WITH CALVIN DELONG. PT DOES NOT FEEL COMFORTABLE ASKING FOR PAIN MEDICATION. HE STATES THAT HE DOESNT WANT TO SEEM LIKE A FREE PSYCH SOCIAL WORKER. EDUCATION PROVIDED ON THE IMPORTANCE OF MANAGING PAIN. REINFORCEMENT NEEDED.
[2022-09-26 05:51] LABS: BASOPHILS ABSOLUTE AUTO 0.01 K/mm3 (0.00-0.23); BASOPHILS PERCENT AUTO 0 % (0-2); EOSINOPHILS ABSOLUTE AUTO 0.02 K/mm3 (0.00-0.68); EOSINOPHILS PERCENT AUTO 0 % (0-6); Hematocrit 37.2 % (37.0-53.0); Hemoglobin 11.8 g/dL (13.5-17.5); IMMATURE GRAN ABSOLUTE AUTO 0.07 K/mm3 (0.00-0.10); IMMATURE GRAN PERCENT AUTO 1 % (0-1); LYMPHOCYTES ABSOLUTE AUTO 1.52 K/mm3 (0.84-5.20); LYMPHOCYTES PERCENT AUTO 13 % (21-46); MONOCYTES ABSOLUTE AUTO 0.63 K/mm3 (0.16-1.47); MONOCYTES PERCENT AUTO 5 % (4-13); Mean Corpuscular HGB 27.9 pg (26.0-34.0); Mean Corpuscular HGB Conc 31.7 g/dL (31.5-36.5); Mean Corpuscular Volume 88 fL (80-100); Mean Platelet Volume 9.5 fL (9.1-12.4); NEUTROPHILS ABSOLUTE AUTO 9.73 K/mm3 (1.96-9.15); NEUTROPHILS PERCENT AUTO 81 % (41-73); Platelet Count 342 K/mm3 (150-400); RDW Coefficient Variation 14.7 % (11.7-14.2); RDW Standard Deviation 47.1 fL (35.1-46.3); Red Blood Cell Count 4.23 M/mm3 (4.30-5.90); White Blood Cell Count 11.98 K/mm3 (4.00-11.30)
--- NOTE | 2022-09-26 06:02 | NUR ---
PATIENT SLEPT WELL THROUGH THE NIGHT, COOPERATIVE WITH CARE. TELE NSR WITH SOME PVC'S AND PAC'S PER FREIGHT BROKER AGENT. IV SL AND WNL. INCREASED O2 NEEDS THIS MORNING WHILE SLEEPING, ON 8L HIGH FLOW AT THIS TIME. BEDBATH COMPLETE AT START OF SHIFT BY OCEANOGRAPHER GEOLOGICAL. WILL CONT TO MONITOR.
[2022-09-26 06:19] LABS: Calcium, Blood 8.7 mg/dL (8.5-10.1); Creatinine, Blood 0.83 mg/dL (0.60-1.20)
--- NOTE | 2022-09-26 11:40 | NUR ---
SIGNED POLST Had Dr. Cruz signed DNR with limited treatment as per conversation between Palliative Care RN Majo and himself. Staley original POLST given to patient's . Two copies placed in front of chart.
--- NOTE | 2022-09-26 19:16 | NUR ---
No overnight events. VSS stable. Will continue to monitor.
--- NOTE | 2022-09-27 04:34 | NUR ---
MAGAZINE DESIGNER SUMMARY VSS, HAS BEEN RESTING WITH FEW INTERRUPTIONS. O2 PER NC AT 5L/HIGH FLOW. LUNG SOUNDS CONGESTED/DIMINISHED. CONT O2 SATS - 90'S UNLESS UP TO BEDSIDE TO VOID, ETC.ALERT AND ORIENTED X 4. MED [employer] SR IN THE 70'S. CALL LIGHT IN REACH. WILL CONINUE TO MONITOR. DENIES DISTRESS AT THIS TIME.
--- NOTE | 2022-09-27 14:35 | NUR ---
MET WITH PT AND TRACEE (PT SPOUSE), HE REPORTS THAT HE WANT TO GO WITH [facility] HOSPICE [facility]. ADVISED THAT POTENTIALLY THEY DO NOT HAVE ADMISSION AVAIABILITY UNTIL NEXT WEEK AND THEY ARE OF WITH THIS. PT HAS A VISITOR, WILL COME BACK TO UPDATE POLST.
--- NOTE | 2022-09-27 14:37 | NUR ---
CHOICE LETTER FOR [facility] IS SIGNED BY PT.
--- NOTE | 2022-09-27 16:38 | NUR ---
MET WITH PT, HE IS ANXIOUS AND NERVOUS ABOUT HOSPICE. PROVIDED EDUCATION ON HOSPICE PHILOSOPHY, FOCUS ON QUALITY OF LIFE AND TEAM APPROACH. AFTER OUR CONVERSATION, IT SEEMED TO EASE SOME OF HIS ANXIETY. PT HAS A LOVE FOR OLD CARS. HE SHOWED ME SOME PICTURES OF HIS OLD CHEVYS AND HE WISHES THAT WOULD GET TO DRIVE THEM MORE OFTEN. THEY HAVE BROUGHT HIM ALOT OF YAA IN HIS LIFE AND GOOD MEMORIES. WE ALSO UPDATED HIS POLST TO DNR WITH CONFORT CARE TO START AFTER PT IS DCD TOMORROW. [facility] WILL PLAN TO ADMIT POSSIBLY NEXT WEEK, CM STILL WORKING ON THIS. UPDATED RN AND DR TOBIAS OF CHANGE IN POLST. LEFT IT ON THE WHITE BOARD TO BE SIGNED BEFORE PT IS DCD.
--- NOTE | 2022-09-27 17:18 | NUR ---
SHIFT SUMMARY PT A&OX4 AND PLEASANT. NO ACUTE CHANGES. PT CALLS APPROPRIATELY. PT C/O PAIN IN BLE IN AM. MEDICATED PER EMAR. VISITORS AT BEDSIDE DURING AFTERNOON. PT UP IN CHAIR MOST OF DAY. CALL LIGHT IN REACH.
--- NOTE | 2022-09-28 04:31 | NUR ---
SUMMARY: NO ACUTE EVENTS OVERNIGHT. PATIENT AMBULATING TO TOILET SBA. ON 5L NV. AOX4. PLAN TO DC TODAY. VSS. CALL LIGHT IN REACH. PLAN FOR DC HOME TODAY TO HOSPICE.
[2022-09-28] MEDS ORDERED: PRED20 PO (12:02)
--- NOTE | 2022-09-28 12:25 | NUR ---
DISCHARGE NOTE PT DISCHARGED TO HOME WITH HOSPICE. HIS IS TRANSPORTING HIM HOME VIA VEHICLE. CONY QUISPE CNA, TOOK HIM TO HIS CAR BY WHEELCHAIR. ALL DISCHARGE PAPERWORK REVIEWED AND MEDICATIONS FAXED TO THE PHARMACY OF HIS CHOICE. IV REMOVED. HARD SCRIPT FOR PAIN MEDICATIONS GIVEN TO PT.
== END 2022-09-28 12:15 | disposition hospice, home (50) | DRG 871 ==
LOC: ER 08:28 → MEDS 14:01
PROVIDERS: Internal Medicine; Internal Medicine Critical Care Medicine; Physician Assistant; ADMIT Internal Medicine
DX: A41.9 Sepsis, unspecified organism (principal); J18.9 Pneumonia, unspecified organism; J96.21 Acute and chronic respiratory failure with hypoxia; I50.30 Unspecified diastolic (congestive) heart failure; G90.50 Complex regional pain syndrome I, unspecified; K21.9 Gastro-esophageal reflux disease without esophagitis; N40.0 Benign prostatic hyperplasia without lower urinary tract symptoms; I11.0 Hypertensive heart disease with heart failure; I25.10 Atherosclerotic heart disease of native coronary artery without angina pectoris; F41.9 Anxiety disorder, unspecified; R91.1 Solitary pulmonary nodule; E78.00 Pure hypercholesterolemia, unspecified; J43.2 Centrilobular emphysema; K76.0 Fatty (change of) liver, not elsewhere classified; G62.9 Polyneuropathy, unspecified; E29.0 Testicular hyperfunction; G47.00 Insomnia, unspecified; F32.A Depression, unspecified; Z20.822 Contact with and (suspected) exposure to COVID-19; Z86.711 Personal history of pulmonary embolism; Z79.01 Long term (current) use of anticoagulants; Z88.5 Allergy status to narcotic agent; Z88.8 Allergy status to other drugs, medicaments and biological substances; Z79.899 Other long term (current) drug therapy; Z79.51 Long term (current) use of inhaled steroids; Z79.52 Long term (current) use of systemic steroids; I25.2 Old myocardial infarction; Z79.891 Long term (current) use of opiate analgesic; Z79.02 Long term (current) use of antithrombotics/antiplatelets; Z79.2 Long term (current) use of antibiotics; Z98.890 Other specified postprocedural states; Z98.49 Cataract extraction status, unspecified eye; Z99.81 Dependence on supplemental oxygen; Z86.73 Personal history of transient ischemic attack (TIA), and cerebral infarction without residual deficits; Z90.49 Acquired absence of other specified parts of digestive tract; Z87.891 Personal history of nicotine dependence; Z98.52 Vasectomy status
CPT/HCPCS: 0241U; 36415; 71046; 71260; 74230; 80048; 80053; 80069; 82947; 83605; 83880; 84145; 85025; 85379; 87040; 87070; 87205; 92526; 92610; 92611; 93005; 93010; 93306; 94640; 94664; 94760; 94762; 99285-25; A9270; J1650; J1940; J1956; J2543; J2920; J7030; J7050; J7512; Q9967